=== PATIENT | female | born 1940 | race African-American/Black ===

== ENCOUNTER → 2016-11-04 | Outpatient (CLI) | payer MEDICARE, OTHER | LOC: OD 10:19 | PROVIDERS: ATTEND Internal Medicine | DX: R06.02 Shortness of breath (principal); I34.8 Other nonrheumatic mitral valve disorders; R00.2 Palpitations; E78.4 Other hyperlipidemia; R07.9 Chest pain, unspecified; R01.1 Cardiac murmur, unspecified; Z79.899 Other long term (current) drug therapy | CPT/HCPCS: 36415; 83880 ==

== ENCOUNTER → 2016-12-03 | Outpatient (CLI) | payer MEDICARE, OTHER | LOC: OD 15:29 | PROVIDERS: ATTEND Internal Medicine | DX: R06.09 Other forms of dyspnea (principal) | CPT/HCPCS: 71020 ==

== ENCOUNTER → 2017-02-01 | Outpatient (CLI) | payer MEDICARE, OTHER ==
[2017-02-03 12:43] LABS: ARTERIAL BLOOD BASE EXCESS 2.5 mmol/L; ARTERIAL BLOOD O2 SATURATION 93.9 % (94-98)
== END ==
LOC: OD 11:32
PROVIDERS: ATTEND Internal Medicine Pulmonary Disease
DX: J96.11 Chronic respiratory failure with hypoxia (principal)
CPT/HCPCS: 36600; 82803

== ENCOUNTER → 2017-02-01 | Outpatient (CLI) | payer MEDICARE, OTHER | LOC: OD 11:45 | PROVIDERS: ATTEND Internal Medicine Pulmonary Disease | DX: Z53.9 Procedure and treatment not carried out, unspecified reason (principal) ==

== ENCOUNTER 2017-05-20 16:28 | Inpatient (IN) | payer MEDICARE, OTHER ==
--- NOTE | 2017-05-20 16:42 | ER Document Report ---
ED Medical Screen (RME) - General Chief Complaint: Shortness Of Breath Stated Complaint: SHORTNESS OF BREATHE Time Seen by Provider: 05/20/17 16:41 Mode of Arrival: Wheelchair Information source: Patient TRAVEL OUTSIDE OF THE [place] IN LAST 30 DAYS: No - HPI Patient complains to provider of: Shortness of breath Notes: 05/20/17 16:41 Patient is a 77-year-old female presenting to the emergency room complaining of worsening shortness of breath over the past 6-8 weeks, with chest tightness, no known history of any lung disease, in triage area patient's pulse ox is 83% on room air, she was immediately taken back to her room and handed off to Dr. Ruth for further care - Related Data Allergies/Adverse Reactions: No Known Allergies Allergy (Verified 05/20/17 16:33) Past Medical History - Social History Family history: Reviewed & Not Pertinent - Past Medical History Cardiac Medical History: Reports: Hx Hypertension Denies: Hx Coronary Artery Disease, Hx Heart Attack Pulmonary Medical History: Reports: Hx COPD - slight case Denies: Hx Asthma, Hx Bronchitis, Hx Pneumonia Neurological Medical History: Denies: Hx Cerebrovascular Accident, Hx Seizures Endocrine Medical History: Reports: Hx Diabetes Mellitus Type 2, Hx Hypothyroidism Renal/ Medical History: Denies: Hx Peritoneal Dialysis Musculoskeltal Medical History: Reports Hx Arthritis Past Surgical History: Reports: Hx Abdominal Surgery - hernia, Hx Hysterectomy, Hx Thyroid Surgery - Immunizations Hx Diphtheria, Pertussis, Tetanus Vaccination: No Physical Exam - Vital signs Vitals: Pulse Resp BP Pulse Ox 105 H 22 H 144/59 H 83 L 05/20/17 16:31 05/20/17 16:31 05/20/17 16:31 05/20/17 16:31 Course - Vital Signs Vital signs: Temp Pulse Resp BP Pulse Ox 98.0 F 105 H 22 H 144/59 H 83 L 05/20/17 16:37 05/20/17 16:31 05/20/17 16:31 05/20/17 16:31 05/20/17 16:31
[2017-05-20] MEDS ORDERED: ALBUTEROL SULFATE 0.083% NEB 2.5 MG/3 ML AMPUL NEB ONE (16:44)
[2017-05-20] MEDS ORDERED: MAGNESIUM SULFATE/D5W 1 GM/100 ML RTUPB IV ONE (16:44)
[2017-05-20] MEDS ORDERED: IPRATROPIUM/ALBUTEROL 0.5-2.5 MG/3 ML AMPUL NEB ONE ×2 (16:44→16:48)
[2017-05-20] MEDS ORDERED: METHYLPREDNISOLONE INJ 125 MG/2 ML SDV IV ONE (16:44)
[2017-05-20 17:25] LABS: ABSOLUTE EOSINOPHILS # (AUTO) 0.1 10^3/uL (0.0-0.6); ABSOLUTE LYMPHOCYTES (AUTO) 1.3 10^3/uL (0.5-4.7); ABSOLUTE MONOCYTES (AUTO) 0.3 10^3/uL (0.1-1.4); ABSOLUTE NEUT (AUTO) 4.8 10^3/uL (1.7-8.2); BASOPHILS % (AUTO) 0.8 % (0-2); EOSINOPHILS % (AUTO) 1.2 % (0-6); HEMATOCRIT 43.7 % (36.0-47.0); HEMOGLOBIN 14.8 g/dL (12.0-15.5); HGB HCT DIFFERENCE 0.7; LYMPHOCYTES % (AUTO) 19.4 % (13-45); MEAN CORPUSCULAR HEMOGLOBIN 31.3 pg (27.0-33.4); MEAN CORPUSCULAR HGB CONC 33.8 g/dL (32.0-36.0); MEAN CORPUSCULAR VOLUME 93 fl (80-97); MONOCYTES % (AUTO) 5.2 % (3-13); RED BLOOD COUNT 4.71 10^6/uL (3.72-5.28); RED CELL DISTRIBUTION WIDTH 16.4 % (11.5-14.0); SEGMENTED NEUTROPHILS % (AUTO) 73.4 % (42-78); WHITE BLOOD COUNT 6.5 10^3/uL (4.0-10.5)
[2017-05-20 17:40] LABS: ALANINE AMINOTRANSFERASE 35 U/L (9-52); ALBUMIN 4.3 g/dL (3.5-5.0); ALKALINE PHOSPHATASE 108 U/L (38-126); ANION GAP 16 (5-19); ASPARTATE AMINO TRANSFERASE 29 U/L (14-36); BILIRUBIN,DIRECT 0.4 mg/dL (0.0-0.4); BLOOD UREA NITROGEN 15 mg/dL (7-20); CALCIUM 9.2 mg/dL (8.4-10.2); CARBON DIOXIDE 25 mmol/L (22-30); CHLORIDE 100 mmol/L (98-107); CREATINE KINASE 103 U/L (30-135); CREATININE RESULT 0.97 mg/dL (0.52-1.25); GLUCOSE 179 mg/dL (75-110); POTASSIUM 3.7 mmol/L (3.6-5.0); SODIUM 141.3 mmol/L (137-145); TOTAL PROTEIN 7.4 g/dL (6.3-8.2)
[2017-05-20 17:52] LABS: CREATINE KINASE MB 0.95 ng/mL (<4.55)
--- NOTE | 2017-05-20 17:57 | RADIOLOGY REPORT (SQ) ---
EXAM DESCRIPTION: CHEST SINGLE VIEW COMPLETED DATE/TIME: 05/20/2017 5:49 pm REASON FOR STUDY: db COMPARISON: 12/03/2016. EXAM PARAMETERS: NUMBER OF VIEWS: One view. TECHNIQUE: Single frontal radiographic view of the chest acquired. RADIATION DOSE: NA LIMITATIONS: None. FINDINGS: LUNGS AND PLEURA: Mild atelectasis. No focal infiltrates, masses or pneumothorax. No pleu ral effusion. MEDIASTINUM AND HILAR STRUCTURES: No masses. Contour normal. HEART AND VASCULAR STRUCTURES: Heart upper limits of normal in size. Normal vasculature. BONES: No acute findings. HARDWARE: None in the chest. OTHER: No other significant finding. IMPRESSION: NO ACUTE RADIOGRAPHIC FINDING IN THE CHEST. TECHNICAL DOCUMENTATION: JOB ID: [id number]
[2017-05-20 18:13] LABS: TROPONIN I < 0.012 ng/mL
[2017-05-20 18:22] LABS: VENOUS BLOOD BASE EXCESS 0.7 mmol/L; VENOUS BLOOD HCO3 25.5 mmol/L (20-32); VENOUS BLOOD PCO2 41.4 mmHg (35-63); VENOUS BLOOD PH 7.41 (7.30-7.42)
--- NOTE | 2017-05-20 18:37 | ER Document Report ---
ED General - General Chief Complaint: Shortness Of Breath Stated Complaint: SHORTNESS OF BREATHE Time Seen by Provider: 05/20/17 16:41 Mode of Arrival: Wheelchair TRAVEL OUTSIDE OF THE [place] IN LAST 30 DAYS: No - HPI Patient complains to provider of: Shortness of breath Notes: Patient coming in for evaluation shortness of breath. Patient states initially shortness of breath ongoing for the last month however worse over the last 24 hours. Patient denies any fevers chills nausea vomiting cough patient states mostly short of breath on exertion. Denies any chest pain abdominal pain. Patient states possible history of COPD in the past patient states that one time she was on chronic oxygen however was told by another physician to stop her O2 use. Patient is unclear when she was told not to wear oxygen anymore. Patient does not smoke does not drink alcohol does not do any drugs. Pulse ox at bedside shows 83%. Patient placed on nasal cannula - Related Data Allergies/Adverse Reactions: No Known Allergies Allergy (Verified 05/20/17 16:33) Past Medical History - General Information source: Patient - Social History Smoking Status: Unknown if Ever Smoked Family History: Reviewed & Not Pertinent - Past Medical History Cardiac Medical History: Reports: Hx Hypertension Denies: Hx Coronary Artery Disease, Hx Heart Attack Pulmonary Medical History: Reports: Hx COPD - slight case Denies: Hx Asthma, Hx Bronchitis, Hx Pneumonia Neurological Medical History: Denies: Hx Cerebrovascular Accident, Hx Seizures Endocrine Medical History: Reports: Hx Diabetes Mellitus Type 2, Hx Hypothyroidism Renal/ Medical History: Denies: Hx Peritoneal Dialysis Musculoskeltal Medical History: Reports Hx Arthritis Past Surgical History: Reports: Hx Abdominal Surgery - hernia, Hx Hysterectomy, Hx Thyroid Surgery - Immunizations Hx Diphtheria, Pertussis, Tetanus Vaccination: No Review of Systems - Review of Systems Constitutional: No symptoms reported EENT: No symptoms reported Cardiovascular: No symptoms reported Respiratory: Short of breath, Wheezing Gastrointestinal: No symptoms reported Genitourinary: No symptoms reported Female Genitourinary: No symptoms reported Musculoskeletal: No symptoms reported Skin: No symptoms reported Hematologic/Lymphatic: No symptoms reported Neurological/Psychological: No symptoms reported -: Yes All other systems reviewed and negative Physical Exam - Vital signs Vitals: Pulse Resp BP Pulse Ox 105 H 22 H 144/59 H 83 L 05/20/17 16:31 05/20/17 16:31 05/20/17 16:31 05/20/17 16:31 Interpretation: Hypoxic - General General appearance: Appears well, Alert - HEENT Head: Normocephalic, Atraumatic Eyes: Normal Pupils: PERRL - Respiratory Respiratory status: Respiratory distress Chest status: Nontender Breath sounds: Decreased air movement, Wheezing Chest palpation: Normal - Cardiovascular Rhythm: Regular Heart sounds: Normal auscultation Murmur: No - Abdominal Inspection: Normal Distension: No distension Bowel sounds: Normal Tenderness: Nontender Organomegaly: No organomegaly - Back Back: Normal, Nontender - Extremities General upper extremity: Normal inspection, Nontender, Normal color, Normal ROM , Normal temperature General lower extremity: Normal inspection, Nontender, Normal color, Normal ROM , Normal temperature, Normal weight bearing. No: Ayden's sign - Neurological Neuro grossly intact: Yes Cognition: Normal Orientation: AAOx4 [place] Coma Scale Eye Opening: Spontaneous [place] Coma Scale Verbal: Oriented [place] Coma Scale Motor: Obeys Commands [place] Coma Scale Total: 15 Speech: Normal Motor strength normal: LUE, RUE, LLE, RLE Sensory: Normal - Psychological Associated symptoms: Normal affect, Normal mood - Skin Skin Temperature: Warm Skin Moisture: Dry Skin Color: Normal Course - Re-evaluation Re-evalutation: 05/20/17 18:35 EKG and lab work does not show any concerning pathology at this time. Chest x- ray is also negative d-dimer was elevated follow-up CTA still pending. Patient' s breathing has improved with BiPAP Solu-Medrol bronchodilators and magnesium. Discussed with Dr. Atkins of the hospitalist group states that he will pass the patient's case onto the nighttime hospitalist. - Vital Signs Vital signs: Temp Pulse Resp BP Pulse Ox 98.0 F 105 H 24 H 144/59 H 94 05/20/17 16:37 05/20/17 16:31 05/20/17 17:40 05/20/17 16:31 05/20/17 17:40 - Laboratory Result Diagrams: 05/20/17 16:55 05/20/17 16:55 Laboratory results interpreted by me: 05/20/17 05/20/17 05/20/17 16:55 16:55 16:55 RDW 16.4 H D-Dimer 0.72 H Est GFR (Non-Af Amer) 56 L Glucose 179 H Critical Care Note - Critical Care Note Total time excluding time spent on procedures (mins): 35 Comments: Multiple evaluation patient with COPD exacerbation with hypoxic respiratory failure. Discharge - Discharge Clinical Impression: Acute respiratory failure with hypoxia COPD (chronic obstructive pulmonary disease) Qualifiers: COPD type: unspecified COPD Qualified Code(s): J44.9 - Chronic obstructive pulmonary disease, unspecified Condition: Stable Disposition: ADMITTED INPATIENT Admitting Provider: Hospitalist
--- NOTE | 2017-05-20 18:48 | RADIOLOGY REPORT (SQ) ---
EXAM DESCRIPTION: CTA CHEST COMPLETED DATE/TIME: 05/20/2017 6:18 pm REASON FOR STUDY: sob COMPARISON: None. TECHNIQUE: CT scan of the chest performed using helical scanning technique with dynamic intravenous contrast injection. Images reviewed with lung, soft tissue and bone windows. Reconstructed coronal and sagittal MPR images reviewed. Additional 3 dimensional post-processing performed to develop Maximal Intensity Projection images ([place] P). All images stored on PACS. All CT scanners at this facility use dose modulation, iterative reconstruction, and/or weight based d osing when appropriate to reduce radiation dose to as low as reasonably achievable (ALARA). [facility]: Dose Right [facility]: CareDose [facility]: Dose Right [facility]: Teradose 4D [facility]: HuddleApp CONTRAST TYPE AND DOSE: contrast/concentration: Isovue 370.00 mg/ml; Total Contrast Delivered: 70.0 ml; Total Saline Delivered: 72.0 ml Contrast bolus optimized for the pulmonary arteries. Not diagnostic for the aorta. RENAL FUNCTION: Creatinine 1 BUN 15 RADIATION DOSE: Up-to-date CT equipment and radiation dose reduction techniques were employed. CTDIv ol: 16.5 - 18.8 mGy. DLP: 658 mGy-cm. . LIMITATIONS: None. FINDINGS: LUNGS AND PLEURA: Centrilobular emphysematous changes are present. These are more promine nt in upper lobes. No pulmonary mass or infiltrate is seen. AORTA AND GREAT VESSELS: No aneurysm. Contrast bolus not optimized for the aorta. HEART: No pericardial effusion. Moderate to marked coronary artery calcifications. PULMONARY ARTERIES: No emboli visualized in the main pulmonary arteries or the segmental branches. HILAR AND MEDIASTINAL STRUCTURES: There is mild mediastinal and hilar adenopathy, more on the left th an the right. HARDWARE: None in the chest. UPPER ABDOMEN: There is a 9 cm upper pole right renal cyst. Smaller left renal cysts are present. THYROID AND OTHER SOFT TISSUES: No masses. No adenopathy. BONES: No osseous lesions are seen. 3D MIPS: Confirm above findings. OTHER: No other significant finding. IMPRESSION: 1. There is no evidence of pulmonary emboli. 2. There is some mild high hilar mediastinal adenopathy. 3. Centrilobular emphysematous changes in the upper lobes. 4. Coronary atherosclerosis. 5. Large right renal cyst. COMMENT: Quality ID # [id number]: Final reports with documentation of one or more dose reduction techniques (e.g., Automated exposure control, adjustment of the mA and/or kV according to patient size, use of iterative reconstruction technique) TECHNICAL DOCUMENTATION: JOB ID: [id number] [employer]- All Rights Reserved
[2017-05-20] MEDS ORDERED: ACETAMINOPHEN 325 MG TABLET PO PRN (19:33)
[2017-05-20] MEDS ORDERED: DEXTROSE 50%-WATER 25 GM/50 ML DISP.SYRIN IV PRN ×2 (19:40)
[2017-05-20] MEDS ORDERED: GLUCAGON,HUMAN RECOMB 1 MG INJ IM PRN (19:40)
[2017-05-20] MEDS ORDERED: DEXTROSE 40% GEL 15 GM TUBE PO PRN ×2 (19:40)
[2017-05-20] MEDS ORDERED: ALBUTEROL SULFATE 0.083% NEB 2.5 MG/3 ML AMPUL NEB SCH (20:00)
[2017-05-20] MEDS ORDERED: FLUTICASONE NASAL SPRAY 50 MCG/SPRY 120 SPRAY/16 GM NASL ONE (20:30)
[2017-05-20] MEDS ORDERED: CHLORPHENIRAMINE MALEATE 4 MG TABLET PO ONE (20:30)
[2017-05-20] MEDS ORDERED: PREDNISONE 20 MG TABLET PO ONE (20:30)
[2017-05-20] MEDS: IPRATROPIUM/ALBUTEROL 0.5-2.5 MG/3 ML AMPUL NEB SCH (20:35)
--- NOTE | 2017-05-20 22:53 | PDOC H&P ---
History of Present Illness Admission Date/PCP: 05/20/17 19:33 Patient complains of: Shortness of breath History of Present Illness: MARTA ANDERS is a 77 year old female with a past medical history of COPD formerly oxygen dependent who has exceptional shortness of breath limiting ambulation beyond 20 feet at baseline. She had been in her usual state of health until approximately 24 hours ago developing shortness of breath at rest and a nonproductive cough denying rhinorrhea, sore throat, chest pain fever and chills. Denying exposure to known trigger. She denies any recent change in her medication regiment. In the emergency room she is found to have oxygen saturations of 83% and a CT a negative for PE but suggestive of emphysema she is placed on BiPAP at 50%, Solu-Medrol and DuoNeb. She is referred to the hospitalist for admission. Past Medical History Cardiac Medical History: Reports: Hypertension Denies: Coronary Artery Disease, Myocardial Infarction Pulmonary Medical History: Reports: Chronic Obstructive Pulmonary Disease (COPD ) - slight case Denies: Asthma, Bronchitis, Pneumonia Neurological Medical History: Denies: Seizures Endocrine Medical History: Reports: Diabetes Mellitus Type 2, Hypothyroidism Musculoskeltal Medical History: Reports: Arthritis Hematology: Comment Only: Anemia - on ASA Past Surgical History Past Surgical History: Reports: Hysterectomy Social History Information Source: Patient Smoking Status: Former Smoker Frequency of Alcohol Use: None Hx Recreational Drug Use: No Drugs: None - Advance Directive Resuscitation Status: Full Code Family History Family History: COPD Parental Family History Reviewed: Yes Children Family History Reviewed: Yes Sibling(s) Family History Reviewed.: Yes Medication/Allergy Home Medications: Empagliflozin [Jardiance] 25 mg PO DAILY 05/20/17 Allergies/Adverse Reactions: No Known Allergies Allergy (Verified 05/20/17 16:33) Review of Systems Constitutional: ABSENT: chills, fever(s), headache(s), weight gain, weight loss Eyes: ABSENT: visual disturbances Ears: ABSENT: hearing changes Cardiovascular: ABSENT: chest pain, dyspnea on exertion, edema, orthropnea, palpitations Respiratory: ABSENT: cough, hemoptysis Gastrointestinal: ABSENT: abdominal pain, constipation, diarrhea, hematemesis, hematochezia, nausea, vomiting Genitourinary: ABSENT: dysuria, hematuria Musculoskeletal: ABSENT: joint swelling Integumentary: ABSENT: rash, wounds Neurological: ABSENT: abnormal gait, abnormal speech, confusion, dizziness, focal weakness, syncope Psychiatric: ABSENT: anxiety, depression, homidical ideation, suicidal ideation Endocrine: ABSENT: cold intolerance, heat intolerance, polydipsia, polyuria Hematologic/Lymphatic: ABSENT: easy bleeding, easy bruising Physical Exam Vital Signs: Temp Pulse Resp BP Pulse Ox 98.0 F 105 H 20 121/87 H 94 05/20/17 16:37 05/20/17 16:31 05/20/17 21:01 05/20/17 21:01 05/20/17 21:00 General appearance: PRESENT: cooperative, mild distress, well-developed, well- nourished Head exam: PRESENT: atraumatic, normocephalic Eye exam: PRESENT: conjunctiva pink, EOMI, PERRLA. ABSENT: scleral icterus Ear exam: PRESENT: normal external ear exam Mouth exam: PRESENT: moist, tongue midline Neck exam: ABSENT: carotid bruit, JVD, lymphadenopathy, thyromegaly Respiratory exam: PRESENT: accessory muscle use, decreased breath sounds, prolonged expiratory phas, tachypnea. ABSENT: rales, rhonchi, wheezes Cardiovascular exam: PRESENT: RRR. ABSENT: diastolic murmur, rubs, systolic murmur Pulses: PRESENT: normal dorsalis pedis pul Vascular exam: PRESENT: normal capillary refill GI/Abdominal exam: PRESENT: normal bowel sounds, soft. ABSENT: distended, guarding, mass, organolmegaly, rebound, tenderness Rectal exam: PRESENT: deferred Extremities exam: PRESENT: full ROM. ABSENT: calf tenderness, clubbing, pedal edema Neurological exam: PRESENT: alert, awake, oriented to person, oriented to place , oriented to time, oriented to situation, CN II-XII grossly intact. ABSENT: motor sensory deficit Psychiatric exam: PRESENT: appropriate affect, normal mood. ABSENT: homicidal ideation, suicidal ideation Skin exam: PRESENT: dry, intact, warm. ABSENT: cyanosis, rash Results Impressions: Chest X-Ray 05/20/17 16:41 IMPRESSION: NO ACUTE RADIOGRAPHIC FINDING IN THE CHEST. Chest/Abdomen CTA 05/20/17 17:40 IMPRESSION: 1. There is no evidence of pulmonary emboli. 2. There is some mild high hilar mediastinal adenopathy. 3. Centrilobular emphysematous changes in the upper lobes. 4. Coronary atherosclerosis. 5. Large right renal cyst. Assessment & Plan - Diagnosis (1) COPD (chronic obstructive pulmonary disease) Qualifiers: COPD type: unspecified COPD Qualified Code(s): J44.9 - Chronic obstructive pulmonary disease, unspecified Is this a current diagnosis for this admission?: Yes Plan: Supplemental oxygen, BiPAP prednisone, albuterol, Atrovent, Flonase, empiric antibiotics, flutter valve. Consider PFTs and evaluation of IPF if no significant improvement. (2) Acute bronchitis Is this a current diagnosis for this admission?: Yes Plan: Flutter valve, empiric antibiotics. (3) Acute respiratory failure with hypoxia Is this a current diagnosis for this admission?: Yes Plan: Likely COPD and bronchitis exacerbation however remote PFTs in 2010 showed no significant reversal with albuterol suspicious for I PF. Consider repeat PFTs regardless patient will benefit from pulmonary rehab. - Time Time Spent: 50 to 70 Minutes - Inpatient Certification Medical Necessity: Need Close Monitoring Due to Risk of Patient Decompensation
[2017-05-21] MEDS ORDERED: ALBUTEROL SULFATE 0.083% NEB 2.5 MG/3 ML AMPUL NEB SCH
[2017-05-21] MEDS: HEPARIN SOD (PORCINE) 5,000 UNIT/ML 1 ML SYRINGE SUBCUT SCH ×4 (00:10→21:42)
[2017-05-21] MEDS: LEVOFLOXACIN 750 MG/D5W RTU 750 MG/150 ML RTUPB IV SCH ×2 (00:26→21:42)
[2017-05-21] MEDS: IPRATROPIUM/ALBUTEROL 0.5-2.5 MG/3 ML AMPUL NEB SCH ×4 (02:26→20:36)
[2017-05-21 05:39] LABS: ABSOLUTE LYMPHOCYTES (AUTO) 0.7 10^3/uL (0.5-4.7); ABSOLUTE MONOCYTES (AUTO) 0.1 10^3/uL (0.1-1.4); ABSOLUTE NEUT (AUTO) 8.5 10^3/uL (1.7-8.2); BASOPHILS % (AUTO) 0.2 % (0-2); HEMATOCRIT 42.5 % (36.0-47.0); HEMOGLOBIN 13.9 g/dL (12.0-15.5); HGB HCT DIFFERENCE -0.8; LYMPHOCYTES % (AUTO) 7.5 % (13-45); MEAN CORPUSCULAR HEMOGLOBIN 30.9 pg (27.0-33.4); MEAN CORPUSCULAR HGB CONC 32.8 g/dL (32.0-36.0); MEAN CORPUSCULAR VOLUME 94 fl (80-97); MONOCYTES % (AUTO) 1.3 % (3-13); RED CELL DISTRIBUTION WIDTH 16.3 % (11.5-14.0); WHITE BLOOD COUNT 9.3 10^3/uL (4.0-10.5)
[2017-05-21 05:52] LABS: BLOOD UREA NITROGEN 18 mg/dL (7-20); CALCIUM 9.7 mg/dL (8.4-10.2); CHLORIDE 96 mmol/L (98-107); CREATININE RESULT 0.98 mg/dL (0.52-1.25)
[2017-05-21 06:09] LABS: CARBON DIOXIDE 20 mmol/L (22-30); POTASSIUM 4.3 mmol/L (3.6-5.0); SODIUM 138.6 mmol/L (137-145)
[2017-05-21 06:10] LABS: ANION GAP 23 (5-19)
[2017-05-21 06:12] LABS: GLUCOSE 438 mg/dL (75-110)
[2017-05-21] MEDS: INSULIN LISPRO 100 UNIT/ML 3 ML VIAL SUBCUT PRN ×4 (07:29→23:41)
[2017-05-21] MEDS ORDERED: METHYLPREDNISOLONE INJ 125 MG/2 ML SDV IV SCH (07:45)
[2017-05-21] MEDS ORDERED: PREDNISONE 20 MG TABLET PO SCH (10:00)
[2017-05-21] MEDS ORDERED: LEVOFLOXACIN 750 MG/D5W RTU 750 MG/150 ML RTUPB IV SCH (10:00)
[2017-05-21] MEDS ORDERED: (PENDING PHARMACY ID) (Empagliflozin [Jardiance] 25 MG) PO SCH (10:00)
[2017-05-21] MEDS: METHYLPREDNISOLONE INJ 125 MG/2 ML SDV IV SCH ×2 (10:35→17:06)
[2017-05-21] MEDS: TIOTROPIUM BROMIDE DPI 5 CAP/KIT (18 MCG/CAP) IH SCH (10:35)
[2017-05-21] MEDS: FLUTICASONE NASAL SPRAY 50 MCG/SPRY 120 SPRAY/16 GM NASL SCH (10:35)
--- NOTE | 2017-05-21 11:37 | EKG REPORT ---
SEVERITY:- BORDERLINE ECG - SINUS RHYTHM PROBABLE LEFT ATRIAL ABNORMALITY BORDERLINE T ABNORMALITIES, DIFFUSE LEADS : Confirmed by: Luis Boggs 21-May-2017 11:36:59
--- NOTE | 2017-05-21 11:40 | PDOC PROGRESS REPORT ---
Subjective Progress Note for:: 05/21/17 Subjective:: Patient seen on morning rounds. She is sitting comfortably on side of the bed. She is presently off BiPAP on nasal cannula. She does not appear tachypneic or in any distress. She denies chest pain, palpitations or dyspnea. Denies nausea, abdominal pain or diarrhea. She denies any significant arthralgias or myalgias. She states she has noticed her breathing worsening at home over the last month. She denies any fever chills. She states her cough is loosening but she has not been able to raise secretions at this time. Remaining review of systems is negative. Physical Exam Vital Signs: Temp Pulse Resp BP Pulse Ox 97.6 F 88 22 H 138/84 H 100 05/21/17 08:38 05/21/17 08:39 05/21/17 08:39 05/21/17 08:38 05/21/17 08:39 Intake & Output 05/20/17 05/21/17 05/22/17 06:59 06:59 06:59 Intake Total 450 Balance 450 Weight 80.3 kg General appearance: PRESENT: no acute distress, well-developed, well-nourished Head exam: PRESENT: atraumatic, normocephalic Eye exam: PRESENT: conjunctiva pink, EOMI, PERRLA. ABSENT: scleral icterus Ear exam: PRESENT: normal external ear exam Mouth exam: PRESENT: moist, tongue midline Neck exam: ABSENT: carotid bruit, JVD, lymphadenopathy, thyromegaly Respiratory exam: PRESENT: decreased breath sounds, symmetrical, unlabored, wheezes Cardiovascular exam: PRESENT: RRR. ABSENT: diastolic murmur, rubs, systolic murmur Pulses: PRESENT: normal dorsalis pedis pul Vascular exam: PRESENT: normal capillary refill GI/Abdominal exam: PRESENT: normal bowel sounds, soft. ABSENT: distended, guarding, mass, organolmegaly, rebound, tenderness Rectal exam: PRESENT: deferred Extremities exam: PRESENT: full ROM. ABSENT: calf tenderness, clubbing, pedal edema Musculoskeletal exam: PRESENT: ambulatory, full ROM, normal inspection Neurological exam: PRESENT: alert, awake, oriented to person, oriented to place , oriented to time, oriented to situation, CN II-XII grossly intact. ABSENT: motor sensory deficit Psychiatric exam: PRESENT: appropriate affect, normal mood. ABSENT: homicidal ideation, suicidal ideation Skin exam: PRESENT: dry, intact, warm. ABSENT: cyanosis, rash Results Laboratory Results: 05/21/17 05:23 05/21/17 05:23 05/21/17 05/21/17 05:23 05:23 WBC 9.3 RBC 4.50 Hgb 13.9 Hct 42.5 MCV 94 MCH 30.9 MCHC 32.8 RDW 16.3 H Plt Count 263 Seg Neutrophils % 91.0 H Lymphocytes % 7.5 L Monocytes % 1.3 L Eosinophils % 0.0 Basophils % 0.2 Absolute Neutrophils 8.5 H Absolute Lymphocytes 0.7 Absolute Monocytes 0.1 Absolute Eosinophils 0.0 Absolute Basophils 0.0 Sodium 138.6 Potassium 4.3 Chloride 96 L Carbon Dioxide 20 L Anion Gap 23 H BUN 18 Creatinine 0.98 Est GFR ( Amer) > 60 Est GFR (Non-Af Amer) 55 L Glucose 438 H* Calcium 9.7 Impressions: Chest X-Ray 05/20/17 16:41 IMPRESSION: NO ACUTE RADIOGRAPHIC FINDING IN THE CHEST. Chest/Abdomen CTA 05/20/17 17:40 IMPRESSION: 1. There is no evidence of pulmonary emboli. 2. There is some mild high hilar mediastinal adenopathy. 3. Centrilobular emphysematous changes in the upper lobes. 4. Coronary atherosclerosis. 5. Large right renal cyst. Assessment & Plan - Diagnosis (1) Acute respiratory failure with hypoxia Is this a current diagnosis for this admission?: Yes Plan: BiPAP at bedtime and as needed. (2) Acute bronchitis Is this a current diagnosis for this admission?: Yes Plan: Continue steroids, nebulizers and broad-spectrum antibiotics. (3) COPD (chronic obstructive pulmonary disease) Qualifiers: COPD type: unspecified COPD Qualified Code(s): J44.9 - Chronic obstructive pulmonary disease, unspecified Is this a current diagnosis for this admission?: Yes (4) Diabetes 1.5, managed as type 2 Is this a current diagnosis for this admission?: Yes Plan: Continue home medications and sliding scale coverage (5) Essential hypertension Is this a current diagnosis for this admission?: Yes Plan: Continue home medications. - Time Time Spent with patient: 25-34 minutes Critical Time spent with patient: 15-24 minutes Medications reviewed and adjusted accordingly: Yes Anticipated discharge: Home with Homehealth
[2017-05-22] MEDS: METHYLPREDNISOLONE INJ 125 MG/2 ML SDV IV SCH ×2 (02:10→09:18)
[2017-05-22] MEDS: IPRATROPIUM/ALBUTEROL 0.5-2.5 MG/3 ML AMPUL NEB SCH ×4 (02:47→20:38)
[2017-05-22] MEDS: HEPARIN SOD (PORCINE) 5,000 UNIT/ML 1 ML SYRINGE SUBCUT SCH ×3 (05:18→22:00)
[2017-05-22] MEDS ORDERED: FLUTICASONE/SALMETEROL DISKUS 250-50 MCG/DOSE IH SCH (08:00)
[2017-05-22] MEDS: INSULIN LISPRO 100 UNIT/ML 3 ML VIAL SUBCUT PRN ×4 (08:13→22:00)
[2017-05-22] MEDS: DILTIAZEM HCL 120 MG CAP.SR.24H PO SCH (09:18)
[2017-05-22] MEDS: FLUTICASONE NASAL SPRAY 50 MCG/SPRY 120 SPRAY/16 GM NASL SCH (09:18)
[2017-05-22] MEDS: TIOTROPIUM BROMIDE DPI 5 CAP/KIT (18 MCG/CAP) IH SCH (09:19)
[2017-05-22] MEDS ORDERED: LEVOTHYROXINE SODIUM 0.112 MG TABLET PO SCH (10:00)
[2017-05-22] MEDS ORDERED: LANSOPRAZOLE 15 MG TAB.RAP.DR PO SCH (10:00)
[2017-05-22] MEDS ORDERED: ALPRAZOLAM 0.5 MG TABLET PO PRN (10:24)
[2017-05-22] MEDS ORDERED: METHYLPREDNISOLONE INJ 125 MG/2 ML SDV IV SCH (10:25)
--- NOTE | 2017-05-22 11:42 | PDOC PROGRESS REPORT ---
Subjective Progress Note for:: 05/22/17 Subjective:: Patient seen on morning rounds. She is sitting in the bedside chair. She states her breathing feels improved from yesterday. She does not appear tachypneic or in any distress. She denies chest pain, palpitations or dyspnea. Denies nausea, abdominal pain or diarrhea. She denies any significant arthralgias or myalgias. She states she has noticed her breathing worsening at home over the last month. She denies any fever chills. She states her cough is loosening but she has not been able to raise secretions at this time. Remaining review of systems is negative. Physical Exam Vital Signs: Temp Pulse Resp BP Pulse Ox 97.4 F 101 H 20 136/69 H 95 05/22/17 04:00 05/22/17 08:20 05/22/17 08:20 05/22/17 04:00 05/22/17 08:20 Intake & Output 05/21/17 05/22/17 05/23/17 06:59 06:59 06:59 Intake Total 450 1341 Balance 450 1341 Weight 80.3 kg 79.7 kg General appearance: PRESENT: no acute distress, well-developed, well-nourished Head exam: PRESENT: atraumatic, normocephalic Eye exam: PRESENT: conjunctiva pink, EOMI, PERRLA. ABSENT: scleral icterus Ear exam: PRESENT: normal external ear exam Mouth exam: PRESENT: moist, tongue midline Neck exam: ABSENT: carotid bruit, JVD, lymphadenopathy, thyromegaly Respiratory exam: PRESENT: decreased breath sounds, rhonchi, symmetrical, unlabored Cardiovascular exam: PRESENT: RRR. ABSENT: diastolic murmur, rubs, systolic murmur Pulses: PRESENT: normal dorsalis pedis pul Vascular exam: PRESENT: normal capillary refill GI/Abdominal exam: PRESENT: normal bowel sounds, soft. ABSENT: distended, guarding, mass, organolmegaly, rebound, tenderness Rectal exam: PRESENT: deferred Extremities exam: PRESENT: full ROM. ABSENT: calf tenderness, clubbing, pedal edema Musculoskeletal exam: PRESENT: ambulatory, full ROM, normal inspection Neurological exam: PRESENT: alert, awake, oriented to person, oriented to place , oriented to time, oriented to situation, CN II-XII grossly intact. ABSENT: motor sensory deficit Psychiatric exam: PRESENT: appropriate affect, normal mood. ABSENT: homicidal ideation, suicidal ideation Skin exam: PRESENT: dry, intact, warm. ABSENT: cyanosis, rash Results Laboratory Results: 05/21/17 05:23 05/21/17 05:23 Impressions: Chest X-Ray 05/20/17 16:41 IMPRESSION: NO ACUTE RADIOGRAPHIC FINDING IN THE CHEST. Chest/Abdomen CTA 05/20/17 17:40 IMPRESSION: 1. There is no evidence of pulmonary emboli. 2. There is some mild high hilar mediastinal adenopathy. 3. Centrilobular emphysematous changes in the upper lobes. 4. Coronary atherosclerosis. 5. Large right renal cyst. Assessment & Plan - Diagnosis (1) Acute respiratory failure with hypoxia Is this a current diagnosis for this admission?: Yes Plan: BiPAP at bedtime and as needed. (2) Acute bronchitis Is this a current diagnosis for this admission?: Yes Plan: Continue steroids, nebulizers and broad-spectrum antibiotics. (3) COPD (chronic obstructive pulmonary disease) Qualifiers: COPD type: unspecified COPD Qualified Code(s): J44.9 - Chronic obstructive pulmonary disease, unspecified Is this a current diagnosis for this admission?: Yes Plan: Will obtain nocturnal pulse oxymetry (4) Diabetes 1.5, managed as type 2 Is this a current diagnosis for this admission?: Yes Plan: Continue home medications and sliding scale coverage (5) Essential hypertension Is this a current diagnosis for this admission?: Yes Plan: Continue home medications. (6) Anxiety Is this a current diagnosis for this admission?: Yes Plan: Xanax prn - Time Time Spent with patient: 25-34 minutes Critical Time spent with patient: 15-24 minutes Medications reviewed and adjusted accordingly: Yes
[2017-05-22] MEDS: FLUTICASONE/SALMETEROL DISKUS 250-50 MCG/DOSE IH SCH ×2 (12:44→22:00)
[2017-05-22] MEDS ORDERED: INSULIN GLARGINE,HUM.REC.ANLOG 300 UNIT/3 ML INSULN.PEN SUBCUT ONE (17:15)
[2017-05-22] MEDS: METHYLPREDNISOLONE INJ 40 MG/1 ML SDV IV SCH (17:35)
[2017-05-22] MEDS ORDERED: INSULIN GLARGINE,HUM.REC.ANLOG 1,000 UNIT/10 ML UNIT SUBCUT ONE ×2 (18:27→18:45)
[2017-05-22] MEDS: LEVOFLOXACIN 750 MG/D5W RTU 750 MG/150 ML RTUPB IV SCH (22:00)
[2017-05-23] MEDS: METHYLPREDNISOLONE INJ 40 MG/1 ML SDV IV SCH (02:15)
[2017-05-23] MEDS: IPRATROPIUM/ALBUTEROL 0.5-2.5 MG/3 ML AMPUL NEB SCH ×3 (02:46→13:53)
[2017-05-23 05:41] LABS: VENOUS BLOOD BASE EXCESS 2.4 mmol/L; VENOUS BLOOD HCO3 27.3 mmol/L (20-32); VENOUS BLOOD PCO2 43.1 mmHg (35-63); VENOUS BLOOD PH 7.42 (7.30-7.42)
[2017-05-23 06:05] LABS: ANION GAP 11 (5-19); BLOOD UREA NITROGEN 30 mg/dL (7-20); CALCIUM 9.2 mg/dL (8.4-10.2); CARBON DIOXIDE 28 mmol/L (22-30); CHLORIDE 99 mmol/L (98-107); CREATININE RESULT 0.93 mg/dL (0.52-1.25); GLUCOSE 348 mg/dL (75-110); POTASSIUM 4.5 mmol/L (3.6-5.0); SODIUM 137.5 mmol/L (137-145)
[2017-05-23] MEDS: HEPARIN SOD (PORCINE) 5,000 UNIT/ML 1 ML SYRINGE SUBCUT SCH ×2 (06:45→14:39)
[2017-05-23] MEDS ORDERED: ALPRAZOLAM 0.5 MG TABLET PO PRN (07:30)
[2017-05-23] MEDS ORDERED: LANSOPRAZOLE 15 MG TAB.RAP.DR PO ONE (07:30)
[2017-05-23] MEDS: INSULIN LISPRO 100 UNIT/ML 3 ML VIAL SUBCUT PRN ×2 (07:38→11:25)
[2017-05-23] MEDS ORDERED: LEVOTHYROXINE SODIUM 0.112 MG TABLET PO SCH (08:00)
[2017-05-23] MEDS: FLUTICASONE NASAL SPRAY 50 MCG/SPRY 120 SPRAY/16 GM NASL SCH (09:29)
[2017-05-23] MEDS: DILTIAZEM HCL 120 MG CAP.SR.24H PO SCH (09:29)
[2017-05-23] MEDS: TIOTROPIUM BROMIDE DPI 5 CAP/KIT (18 MCG/CAP) IH SCH (09:30)
[2017-05-23] MEDS: FLUTICASONE/SALMETEROL DISKUS 250-50 MCG/DOSE IH SCH (09:30)
[2017-05-23] MEDS ORDERED: INSULIN GLARGINE,HUM.REC.ANLOG 1,000 UNIT/10 ML UNIT SUBCUT SCH (10:00)
[2017-05-23] MEDS ORDERED: PREDNISONE 20 MG TABLET PO SCH (10:00)
[2017-05-23] MEDS ORDERED: LEVOFLOXACIN 750 MG TABLET PO SCH (10:00)
[2017-05-23] MEDS ORDERED: INSULIN GLARGINE,HUM.REC.ANLOG 300 UNIT/3 ML INSULN.PEN SUBCUT SCH (10:00)
[2017-05-23 14:49] VITALS: BP 146/75
--- NOTE | 2017-05-23 17:09 | PDOC DISCHARGE SUMMARY ---
General - Admit/Disc Date/PCP Admission Date/Primary Care Provider: 05/22/17 18:33 Discharge Date: 05/23/17 - Discharge Diagnosis (1) Acute respiratory failure with hypoxia Is this a current diagnosis for this admission?: Yes Summary: Improved to baseline. Patient does need home oxygen and is willing to wear it now. She was ordered CPAP as well. She has had a positive sleep study in the past. She does not wish to follow with pulmonary in [place] she will follow her primary's recommendation. (2) Acute bronchitis Is this a current diagnosis for this admission?: Yes Summary: Continue Levaquin for 5 more days (3) COPD (chronic obstructive pulmonary disease) Is this a current diagnosis for this admission?: Yes Summary: Continue inhalers. (4) Diabetes 1.5, managed as type 2 Is this a current diagnosis for this admission?: Yes Summary: Continue current home (5) Essential hypertension Is this a current diagnosis for this admission?: Yes (6) Anxiety Is this a current diagnosis for this admission?: Yes - Additional Information Resuscitation Status: Full Code Discharge Diet: Diabetic Discharge Activity: Activity As Tolerated Home Medications: Empagliflozin [Jardiance] 25 mg PO DAILY 05/20/17 Diltiazem HCl [Diltiazem 24Hr Cd] 120 mg PO DAILY 05/21/17 Fluticasone/Salmeterol [Advair 250-50 Diskus 14 Dose/Diskus] 1 puff IH Q12 05/21 Levothyroxine Sodium [Synthroid 0.112 mg Tablet] 0.112 mg PO DAILY 05/21/17 Omeprazole 20 mg PO DAILY 05/21/17 Acetaminophen [Tylenol 325 mg Tablet] 650 mg PO Q4HP PRN tablet 05/23/17 Fluticasone Propionate [Flonase Nasal [place] 50 Mcg/[place] 16 gm] 2 spray NASL DAILY spray.pump 05/23/17 Levofloxacin [Levaquin 750 mg Tablet] 750 mg PO DAILY #5 tablet 05/23/17 Prednisone [Deltasone 20 mg Tablet] 20 mg PO DAILY #7 tablet 05/23/17 History of Present Illness Patient complains of: Shortness of breath and dyspnea History of Present Illness: MARTA ANDERS is a 77 year old female with a past medical history of COPD formerly oxygen dependent who has exceptional shortness of breath limiting ambulation beyond 20 feet at baseline. She had been in her usual state of health until approximately 24 hours ago developing shortness of breath at rest and a nonproductive cough denying rhinorrhea, sore throat, chest pain fever and chills. Denying exposure to known trigger. She denies any recent change in her medication regiment. In the emergency room she is found to have oxygen saturations of 83% and a CT a negative for PE but suggestive of emphysema she is placed on BiPAP at 50%, Solu-Medrol and DuoNeb. She is referred to the hospitalist for admission. Hospital Course Hospital Course: Patient was admitted to the telemetry service. She was started on IV broad- spectrum antibiotics, steroids and there was a treatments. She gradually improved over the next 48 hours. Steroids were weaned to off. Cough and dyspnea has improved. She has agreed to wear oxygen and will need oxygen at discharge. She feels ready for discharge home will follow up with her primary care provider. Physical Exam Vital Signs: Temp Pulse Resp BP Pulse Ox 97.6 F 98 20 146/75 H 97 05/23/17 14:47 05/23/17 14:47 05/23/17 14:47 05/23/17 14:47 05/23/17 14:47 Pulse Oximeter Nocturnal Start: 05/22/17 11: 34 Freq: HSP Status: Active Document 05/23/17 03:41 STI (Rec: 05/23/17 03:41 STI [id number]) Nocturnal Pulse Oximetry Equipment Usage Equipment in Use Nocturnal Spo2 Charge Charge Now Oxygen Delivery Method (includes room Bi-pap air) O2 Sat by Pulse Oximetry (92-100) 30 Continuous SpO2 Machine # [id number] Intake & Output 05/22/17 05/23/17 05/24/17 06:59 06:59 06:59 Intake Total 1540 Balance 1540 Weight 79.1 kg General appearance: PRESENT: no acute distress, obese, well-developed, well- nourished Head exam: PRESENT: atraumatic, normocephalic Eye exam: PRESENT: conjunctiva pink, EOMI, PERRLA. ABSENT: scleral icterus Ear exam: PRESENT: normal external ear exam Mouth exam: PRESENT: moist, tongue midline Neck exam: ABSENT: carotid bruit, JVD, lymphadenopathy, thyromegaly Respiratory exam: PRESENT: clear to auscultation mark, decreased breath sounds, symmetrical, unlabored Cardiovascular exam: PRESENT: RRR. ABSENT: diastolic murmur, rubs, systolic murmur Pulses: PRESENT: normal dorsalis pedis pul Vascular exam: PRESENT: normal capillary refill GI/Abdominal exam: PRESENT: normal bowel sounds, soft. ABSENT: distended, guarding, mass, organolmegaly, rebound, tenderness Rectal exam: PRESENT: deferred Extremities exam: PRESENT: full ROM. ABSENT: calf tenderness, clubbing, pedal edema Neurological exam: PRESENT: alert, awake, oriented to person, oriented to place , oriented to time, oriented to situation, CN II-XII grossly intact. ABSENT: motor sensory deficit Psychiatric exam: PRESENT: appropriate affect, normal mood. ABSENT: homicidal ideation, suicidal ideation Skin exam: PRESENT: dry, intact, warm. ABSENT: cyanosis, rash Results Laboratory Results: 05/23/17 05:25 05/23/17 05/23/17 05:25 05:25 VBG pH 7.42 VBG pCO2 43.1 VBG HCO3 27.3 VBG Base Excess 2.4 Sodium 137.5 Potassium 4.5 Chloride 99 Carbon Dioxide 28 Anion Gap 11 BUN 30 H Creatinine 0.93 Est GFR ( Amer) > 60 Est GFR (Non-Af Amer) 59 L Glucose 348 H Calcium 9.2 Impressions: Chest X-Ray 05/20/17 16:41 IMPRESSION: NO ACUTE RADIOGRAPHIC FINDING IN THE CHEST. Chest/Abdomen CTA 05/20/17 17:40 IMPRESSION: 1. There is no evidence of pulmonary emboli. 2. There is some mild high hilar mediastinal adenopathy. 3. Centrilobular emphysematous changes in the upper lobes. 4. Coronary atherosclerosis. 5. Large right renal cyst. Qualifiers PATEINT BEING DISCHARGED WITH ANY OF THE FOLLOWING DIAGNOSIS?: No Plan Discharge Plan: Home Time Spent: Less than 30 Minutes
[2017-05-24] MEDS ORDERED: LANSOPRAZOLE 15 MG TAB.RAP.DR PO SCH (06:00)
[2017-05-24] MEDS ORDERED: LEVOFLOXACIN 750 MG TABLET PO SCH (10:00)
== END 2017-05-23 17:15 | disposition home or self-care (01) | DRG 190 ==
LOC: ER 16:28 → EH 19:33 → UNDOADMOB 19:33 → EH 20:14 → UNDOADMOB 20:14 → 4S 23:10 → EH 23:10 → 4S 05-22 18:33 → INTOOBSV 05-22 18:33 → OBSVTOIN 05-22 18:33
PROVIDERS: ADMIT Internal Medicine; ATTEND Internal Medicine
PROC: 5A09457 Assistance with Respiratory Ventilation, 24-96 Consecutive Hours, Continuous Positive Airway Pressure (ICD-10-PCS; principal; 2017-05-20)
DX: J44.0 Chronic obstructive pulmonary disease with (acute) lower respiratory infection (principal); J96.21 Acute and chronic respiratory failure with hypoxia; J20.9 Acute bronchitis, unspecified; J44.1 Chronic obstructive pulmonary disease with (acute) exacerbation; E11.9 Type 2 diabetes mellitus without complications; I10 Essential (primary) hypertension; F41.9 Anxiety disorder, unspecified; Z99.81 Dependence on supplemental oxygen; E03.9 Hypothyroidism, unspecified; M19.90 Unspecified osteoarthritis, unspecified site; D64.9 Anemia, unspecified; Z90.710 Acquired absence of both cervix and uterus
CPT/HCPCS: 36415; 71010; 71275; 80048; 80053; 82550; 82553; 82803; 82962; 83735; 83880; 84484; 85025; 85379; 87040; 93005; 93010; 94640; 94660; 94668; 94762; 94799; 96365; 96375; 99291; G0378; J1644; J1815; J1956; J2920; J2930; J3475; J3490; J7512; J7620

== ENCOUNTER → 2017-08-05 | Outpatient (CLI) | payer MEDICARE, OTHER ==
[2017-08-05 11:49] LABS: ABSOLUTE BASOPHILS # (AUTO) 0.1 10^3/uL (0.0-0.2); ABSOLUTE EOSINOPHILS # (AUTO) 0.2 10^3/uL (0.0-0.6); ABSOLUTE LYMPHOCYTES (AUTO) 1.5 10^3/uL (0.5-4.7); ABSOLUTE MONOCYTES (AUTO) 0.5 10^3/uL (0.1-1.4); ABSOLUTE NEUT (AUTO) 4.6 10^3/uL (1.7-8.2); BASOPHILS % (AUTO) 1.1 % (0-2); EOSINOPHILS % (AUTO) 3.5 % (0-6); HEMATOCRIT 44.7 % (36.0-47.0); HEMOGLOBIN 14.8 g/dL (12.0-15.5); HGB HCT DIFFERENCE -0.3; LYMPHOCYTES % (AUTO) 21.9 % (13-45); MEAN CORPUSCULAR HEMOGLOBIN 30.3 pg (27.0-33.4); MEAN CORPUSCULAR HGB CONC 33.2 g/dL (32.0-36.0); MEAN CORPUSCULAR VOLUME 92 fl (80-97); MONOCYTES % (AUTO) 7.1 % (3-13); RED BLOOD COUNT 4.89 10^6/uL (3.72-5.28); RED CELL DISTRIBUTION WIDTH 15.4 % (11.5-14.0); SEGMENTED NEUTROPHILS % (AUTO) 66.4 % (42-78); WHITE BLOOD COUNT 6.9 10^3/uL (4.0-10.5)
[2017-08-05 12:30] LABS: ALANINE AMINOTRANSFERASE 33 U/L (9-52); ALBUMIN 4.6 g/dL (3.5-5.0); ALKALINE PHOSPHATASE 92 U/L (38-126); ANION GAP 14 (5-19); ASPARTATE AMINO TRANSFERASE 22 U/L (14-36); BILIRUBIN,DIRECT 0.5 mg/dL (0.0-0.4); BILIRUBIN,TOTAL 0.7 mg/dL (0.2-1.3); BLOOD UREA NITROGEN 13 mg/dL (7-20); CALCIUM 9.9 mg/dL (8.4-10.2); CARBON DIOXIDE 29 mmol/L (22-30); CHLORIDE 101 mmol/L (98-107); CHOLESTEROL 85.51 mg/dL (0-200); CREATININE RESULT 0.91 mg/dL (0.52-1.25); Direct HDL 46 mg/dL (>40); GLUCOSE 92 mg/dL (75-110); POTASSIUM 4.1 mmol/L (3.6-5.0); SODIUM 144.1 mmol/L (137-145); TOTAL PROTEIN 7.3 g/dL (6.3-8.2); TRIGLYCERIDES 83 mg/dL (<150)
[2017-08-05 12:49] LABS: DIRECT LDL < 30 mg/dL (<100)
[2017-08-05 12:57] LABS: THYROID STIMULATING HORMONE 0.45 uIU/mL (0.47-4.68)
== END ==
LOC: OD 10:11
PROVIDERS: ATTEND Internal Medicine
DX: E03.9 Hypothyroidism, unspecified (principal); E78.00 Pure hypercholesterolemia, unspecified; I10 Essential (primary) hypertension; E11.9 Type 2 diabetes mellitus without complications; Z79.899 Other long term (current) drug therapy
CPT/HCPCS: 36415; 80053; 80061; 84439; 84443; 85025

== ENCOUNTER → 2018-09-21 | Outpatient (CLI) | payer MEDICARE, OTHER ==
[2018-09-21 11:17] LABS: ABSOLUTE LYMPHOCYTES (AUTO) 0.6 10^3/uL (0.5-4.7); ABSOLUTE MONOCYTES (AUTO) 0.3 10^3/uL (0.1-1.4); BASOPHILS % (AUTO) 0.7 % (0-2); EOSINOPHILS % (AUTO) 0.3 % (0-6); HEMATOCRIT 49.9 % (36.0-47.0); HEMOGLOBIN 16.4 g/dL (12.0-15.5); LYMPHOCYTES % (AUTO) 8.5 % (13-45); MEAN CORPUSCULAR HEMOGLOBIN 30.2 pg (27.0-33.4); MEAN CORPUSCULAR HGB CONC 32.8 g/dL (32.0-36.0); MEAN CORPUSCULAR VOLUME 92 fl (80-97); MONOCYTES % (AUTO) 4.4 % (3-13); PLATELET COUNT 275 10^3/uL (150-450); RED BLOOD COUNT 5.42 10^6/uL (3.72-5.28); RED CELL DISTRIBUTION WIDTH 17.9 % (11.5-14.0); SEGMENTED NEUTROPHILS % (AUTO) 86.1 % (42-78); TOTAL CELLS COUNTED % (AUTO) 100 %
[2018-09-21 11:33] LABS: ALANINE AMINOTRANSFERASE 24 U/L (9-52); ALBUMIN 4.5 g/dL (3.5-5.0); ALKALINE PHOSPHATASE 114 U/L (38-126); ANION GAP 11 (5-19); ASPARTATE AMINO TRANSFERASE 26 U/L (14-36); BILIRUBIN,DIRECT 0.2 mg/dL (0.0-0.4); BILIRUBIN,TOTAL 0.9 mg/dL (0.2-1.3); BLOOD UREA NITROGEN 15 mg/dL (7-20); CALCIUM 9.2 mg/dL (8.4-10.2); CARBON DIOXIDE 28 mmol/L (22-30); CHLORIDE 103 mmol/L (98-107); CHOLESTEROL 88.87 mg/dL (0-200); GLUCOSE 169 mg/dL (75-110); POTASSIUM 3.6 mmol/L (3.6-5.0); SODIUM 142.4 mmol/L (137-145); TOTAL PROTEIN 7.7 g/dL (6.3-8.2); TRIGLYCERIDES 70 mg/dL (<150)
[2018-09-21 11:44] LABS: DIRECT LDL 33 mg/dL (<100)
[2018-09-21 11:48] LABS: FREE T4 (FREE THYROXINE) 1.76 ng/dL (0.78-2.19)
[2018-09-21 12:01] LABS: THYROID STIMULATING HORMONE 2.75 uIU/mL (0.47-4.68)
== END ==
LOC: OD 10:45
PROVIDERS: ATTEND Internal Medicine
DX: I10 Essential (primary) hypertension (principal); E78.00 Pure hypercholesterolemia, unspecified; E03.9 Hypothyroidism, unspecified; E11.9 Type 2 diabetes mellitus without complications; Z79.899 Other long term (current) drug therapy
CPT/HCPCS: 36415; 80053; 80061; 84439; 84443; 85025

== ENCOUNTER 2018-11-12 13:13 | Inpatient (IN) | payer MEDICARE, OTHER ==
[2018-11-12] MEDS ORDERED: METHYLPREDNISOLONE INJ 125 MG/2 ML SDV ONE (13:17)
[2018-11-12] MEDS ORDERED: MAGNESIUM SULFATE/D5W 2 GM/200 ML RTUPB IV ONE (13:17)
[2018-11-12] MEDS ORDERED: IPRATROPIUM/ALBUTEROL 0.5-2.5 MG/3 ML AMPUL NEB ONE ×2 (13:17→14:36)
[2018-11-12] MEDS: MAGNESIUM SULFATE/D5W 1 GM/100 ML RTUPB IV SCH ×2 (13:18→14:18)
[2018-11-12] MEDS ORDERED: ONDANSETRON HCL INJ/PF 4 MG/2 ML SDV ONE (13:25)
--- NOTE | 2018-11-12 13:44 | ER Document Report ---
ED General - General Chief Complaint: Shortness Of Breath Stated Complaint: SHORTNESS OF BREATH Time Seen by Provider: 11/12/18 13:42 Mode of Arrival: Ambulatory Information source: Patient, [facility] Records Notes: 78-year-old female with COPD presents via EMS in respiratory distress. EMS reports that the patient was found on 5 L of oxygen with an O2 saturation of 68%. Patient states that her shortness of breath worsened yesterday. She denies any recent illness. She does no longer smoke. TRAVEL OUTSIDE OF THE [place] IN LAST 30 DAYS: No - HPI Onset: Yesterday Onset/Duration: Gradual, Persistent, Worse Quality of pain: No pain Severity: None Associated symptoms: Shortness of breath. denies: Chest pain, Nonproductive cough, Productive cough, Earache, Fever, Hurts to breath, Leg swelling, Nausea, Vomiting Exacerbated by: Denies Relieved by: Denies Similar symptoms previously: Yes Recently seen / treated by doctor: Yes - Related Data Allergies/Adverse Reactions: No Known Allergies Allergy (Verified 05/20/17 16:33) Past Medical History - General Information source: Patient, [facility] Records - Social History Smoking Status: Former Smoker Frequency of alcohol use: None Drug Abuse: None Lives with: Spouse/Significant other Family History: COPD Patient has suicidal ideation: No Patient has homicidal ideation: No - Past Medical History Cardiac Medical History: Reports: Hx Hypertension Denies: Hx Coronary Artery Disease, Hx Heart Attack Pulmonary Medical History: Reports: Hx COPD - slight case Denies: Hx Asthma, Hx Bronchitis, Hx Pneumonia Neurological Medical History: Denies: Hx Cerebrovascular Accident, Hx Seizures Endocrine Medical History: Reports: Hx Diabetes Mellitus Type 2, Hx Hypothyroidism Renal/ Medical History: Denies: Hx Peritoneal Dialysis Musculoskeletal Medical History: Reports Hx Arthritis Past Surgical History: Reports: Hx Abdominal Surgery - hernia, Hx Hysterectomy, Hx Thyroid Surgery - Immunizations Hx Diphtheria, Pertussis, Tetanus Vaccination: No Review of Systems - Review of Systems Notes: REVIEW OF SYSTEMS: CONSTITUTIONAL : Denies fever, chills, or sweats. Denies recent illness. Bobby es weight loss, recent hospitalizations. EENT: Denies visual changes, eye pain. Denies sore throat, oral lesions, difficulty swallowing. CARDIOVASCULAR: Denies chest pain. Denies palpitations. Denies lower extremity edema. RESPIRATORY: Denies cough. GASTROINTESTINAL: Denies abdominal pain or distention. Denies nausea, vomiting, or diarrhea. Denies blood in vomitus, stools, or per rectum. Denies black, tarry stools. Denies constipation. GENITOURINARY: Denies difficulty urinating, painful urination, frequency, blood in urine, or vaginal discharge. MUSCULOSKELETAL: Denies back or neck pain or stiffness. Denies joint pain or swelling. SKIN: Denies rash, lesions or sores. HEMATOLOGIC : Denies easy bruising or bleeding. LYMPHATIC: Denies swollen glands. NEUROLOGICAL: Denies confusion or altered mental status. Denies loss of consciousness. Denies dizziness or lightheadedness. Denies headache. Denies weakness or paralysis. Denies problems difficulty with ambulation, slurred speech. Denies sensory loss, numbness, or tingling. Denies seizures. PSYCHIATRIC: Denies anxiety or stress. Denies depression, suicidal ideation, or homicidal ideation. Denies visual or auditory hallucinations. Physical Exam - Vital signs Vitals: Resp BP Pulse Ox 30 H 135/78 H 95 11/12/18 13:23 11/12/18 13:23 11/12/18 13:23 - Notes Notes: PHYSICAL EXAMINATION: GENERAL: Moderate distress, tripoding, accessory muscle use HEAD: Atraumatic, normocephalic. EYES: Pupils equal round and reactive to light, extraocular movements intact, conjunctiva are normal. ENT: Nares patent, oropharynx clear without exudates. Moist mucous membranes. NECK: Normal range of motion, supple without lymphadenopathy LUNGS: Tachypnea, hypoxia, expiratory wheezing bilaterally in all lung price, increased work of breathing, inability to speak in full sentences. HEART: Tachycardic, regular rhythm. ABDOMEN: Soft, nontender, nondistended abdomen. No guarding, no rebound. No masses appreciated. Female : deferred Musculoskeletal: Normal range of motion, no pitting or edema. No cyanosis. NEUROLOGICAL: Cranial nerves grossly intact. Normal speech, normal gait. Normal sensory, motor exams PSYCH: Anxious SKIN: Warm, Dry, normal turgor, no rashes or lesions noted. Course - Re-evaluation Re-evalutation: 11/12/18 15:29 Laboratory 11/12/18 11/12/18 11/12/18 13:20 13:20 13:20 WBC 9.2 RBC 5.82 H Hgb 17.9 H Hct 53.6 H MCV 92 MCH 30.7 MCHC 33.3 RDW 17.0 H Plt Count 303 Seg Neutrophils % 87.0 H Lymphocytes % 9.6 L Monocytes % 2.0 L Eosinophils % 0.6 Basophils % 0.8 Absolute Neutrophils 8.0 Absolute Lymphocytes 0.9 Absolute Monocytes 0.2 Absolute Eosinophils 0.1 Absolute Basophils 0.1 Carbonic Acid HCO3/H2CO3 Ratio ABG pH ABG pCO2 ABG pO2 ABG HCO3 ABG Total CO2 ABG O2 Saturation ABG Base Excess FiO2 Sodium Cancelled Potassium Cancelled Chloride Cancelled Carbon Dioxide Cancelled Anion Gap Cancelled BUN Cancelled Creatinine Cancelled Est GFR ( Amer) Cancelled Est GFR (Non-Af Amer) Cancelled Glucose Cancelled Lactic Acid 2.2 H Calcium Cancelled Total Bilirubin Cancelled Direct Bilirubin Cancelled Neonat Total Bilirubin Cancelled Neonat Direct Bilirubin Cancelled Neonat Indirect Bili Cancelled AST Cancelled ALT Cancelled Alkaline Phosphatase Cancelled Total Protein Cancelled Albumin Cancelled 11/12/18 11/12/18 13:20 14:05 WBC RBC Hgb Hct MCV MCH MCHC RDW Plt Count Seg Neutrophils % Lymphocytes % Monocytes % Eosinophils % Basophils % Absolute Neutrophils Absolute Lymphocytes Absolute Monocytes Absolute Eosinophils Absolute Basophils Carbonic Acid 1.11 HCO3/H2CO3 Ratio 20:1 ABG pH 7.41 ABG pCO2 36.9 ABG pO2 64.0 L ABG HCO3 22.9 ABG Total CO2 24.1 ABG O2 Saturation 92.8 L ABG Base Excess -1.2 FiO2 60% Sodium 136.5 L Potassium 4.1 Chloride 100 Carbon Dioxide 23 Anion Gap 14 BUN 29 H Creatinine 1.02 Est GFR ( Amer) > 60 Est GFR (Non-Af Amer) 53 L Glucose 225 H Lactic Acid Calcium 9.6 Total Bilirubin 0.8 Direct Bilirubin 0.2 Neonat Total Bilirubin Not Reportable Neonat Direct Bilirubin Not Reportable Neonat Indirect Bili Not Reportable AST 31 ALT 40 Alkaline Phosphatase 108 Total Protein 7.4 Albumin 4.1 Chest X-Ray 11/12/18 13:25 IMPRESSION: Bilateral pleural thickening or effusions. Otherwise, no acute disease. Temp Pulse Resp BP Pulse Ox 29 H 115/67 94 11/12/18 14:15 11/12/18 13:40 11/12/18 14:15 78-year-old female with COPD presents in respiratory distress on CPAP from home. EMS states that they found the patient with an O2 saturation of 78%. She did receive breathing treatments in route without improvement of her tachypnea, accessory muscle use. Patient was immediately transferred to our BiPAP machine and had an improvement in her oxygen saturation. She was administered Solu- Medrol, 2 g of magnesium and Zofran. Patient denies any recent illness except for rhinorrhea. She cannot identify any triggers. She no longer smokes. CBC is without leukocytosis or anemia. CMP shows hyperglycemia without evidence of DKA. Lactate mildly elevated at 2.2. ABG was obtained and does show hypoxia. On reevaluation patient is resting more comfortably. Her accessory muscle use has greatly improved. She states that she feels much better but is agreeable for admission. I have spoke to the hospitalist who accepts the admission to the [facility]. 11/12/18 22:19 - Vital Signs Vital signs: Temp Pulse Resp BP Pulse Ox 86 22 H 116/61 95 11/12/18 19:44 11/12/18 19:44 11/12/18 18:57 11/12/18 19:44 - Laboratory Result Diagrams: 11/12/18 13:20 11/12/18 14:05 Laboratory results interpreted by me: 11/12/18 11/12/18 11/12/18 13:20 13:20 13:20 RBC 5.82 H Hgb 17.9 H Hct 53.6 H RDW 17.0 H Seg Neutrophils % 87.0 H Lymphocytes % 9.6 L Monocytes % 2.0 L ABG pO2 64.0 L ABG O2 Saturation 92.8 L Sodium BUN Est GFR (Non-Af Amer) Glucose Lactic Acid 2.2 H 11/12/18 14:05 RBC Hgb Hct RDW Seg Neutrophils % Lymphocytes % Monocytes % ABG pO2 ABG O2 Saturation Sodium 136.5 L BUN 29 H Est GFR (Non-Af Amer) 53 L Glucose 225 H Lactic Acid - Diagnostic Test Radiology reviewed: Image reviewed, Reports reviewed - EKG Interpretation by Ks EKG shows normal: Sinus rhythm Rate: Tachycardia Rhythm: NSR When compared to previous EKG there are: No significant change Critical Care Note - Critical Care Note Total time excluding time spent on procedures (mins): 40 - Minutes of critical care time spent in direct contact evaluating and reevaluating the patient, treating symptoms, reviewing labs and studies and speaking with family and consultants excluding any procedures Discharge - Discharge Clinical Impression: Acute respiratory failure with hypoxia, Hyperglycemia COPD (chronic obstructive pulmonary disease) Qualifiers: COPD type: unspecified COPD Qualified Code(s): J44.9 - Chronic obstructive pulmonary disease, unspecified Condition: Fair Disposition: ADMITTED INPATIENT Admitting Provider: Hospitalist Unit Admitted: [facility]
[2018-11-12 13:46] LABS: ARTERIAL BLOOD BASE EXCESS -1.2 mmol/L; ARTERIAL BLOOD FIO2 60%; ARTERIAL BLOOD H2CO3 1.11 mmol/L (1.05-1.35); ARTERIAL BLOOD HCO3 22.9 mmol/L (20-24); ARTERIAL BLOOD O2 SATURATION 92.8 % (94-98); ARTERIAL BLOOD PCO2 36.9 mmHg (35-45); ARTERIAL BLOOD PH 7.41 (7.35-7.45); ARTERIAL BLOOD TOTAL CO2 24.1 mmol/L (21-25)
[2018-11-12 13:51] LABS: ABSOLUTE BASOPHILS # (AUTO) 0.1 10^3/uL (0.0-0.2); ABSOLUTE EOSINOPHILS # (AUTO) 0.1 10^3/uL (0.0-0.6); ABSOLUTE LYMPHOCYTES (AUTO) 0.9 10^3/uL (0.5-4.7); ABSOLUTE MONOCYTES (AUTO) 0.2 10^3/uL (0.1-1.4); BASOPHILS % (AUTO) 0.8 % (0-2); EOSINOPHILS % (AUTO) 0.6 % (0-6); HEMATOCRIT 53.6 % (36.0-47.0); HEMOGLOBIN 17.9 g/dL (12.0-15.5); LYMPHOCYTES % (AUTO) 9.6 % (13-45); MEAN CORPUSCULAR HEMOGLOBIN 30.7 pg (27.0-33.4); MEAN CORPUSCULAR HGB CONC 33.3 g/dL (32.0-36.0); MEAN CORPUSCULAR VOLUME 92 fl (80-97); PLATELET COUNT 303 10^3/uL (150-450); RED BLOOD COUNT 5.82 10^6/uL (3.72-5.28); TOTAL CELLS COUNTED % (AUTO) 100 %; WHITE BLOOD COUNT 9.2 10^3/uL (4.0-10.5)
[2018-11-12 14:33] LABS: ALANINE AMINOTRANSFERASE 40 U/L (9-52); ALBUMIN 4.1 g/dL (3.5-5.0); ALKALINE PHOSPHATASE 108 U/L (38-126); ANION GAP 14 (5-19); ASPARTATE AMINO TRANSFERASE 31 U/L (14-36); BILIRUBIN,DIRECT 0.2 mg/dL (0.0-0.4); BILIRUBIN,TOTAL 0.8 mg/dL (0.2-1.3); BLOOD UREA NITROGEN 29 mg/dL (7-20); CALCIUM 9.6 mg/dL (8.4-10.2); CARBON DIOXIDE 23 mmol/L (22-30); CHLORIDE 100 mmol/L (98-107); GLUCOSE 225 mg/dL (75-110); POTASSIUM 4.1 mmol/L (3.6-5.0); SODIUM 136.5 mmol/L (137-145); TOTAL PROTEIN 7.4 g/dL (6.3-8.2)
--- NOTE | 2018-11-12 14:34 | RADIOLOGY REPORT (SQ) ---
EXAM DESCRIPTION: CHEST SINGLE VIEW COMPLETED DATE/TIME: 11/12/2018 2:01 pm REASON FOR STUDY: er 2 COMPARISON: 05/13/2015. EXAM PARAMETERS: NUMBER OF VIEWS: One view. TECHNIQUE: Single frontal radiographic view of the chest acquired. RADIATION DOSE: NA LIMITATIONS: None. FINDINGS: LUNGS AND PLEURA: Since previous study there has been some decreased aeration of lung base s with prominence of interstitial markings. Bilateral pleural thickening or effusions. MEDIASTINUM AND HILAR STRUCTURES: No masses. Contour normal. HEART AND VASCULAR STRUCTURES: The heart is borderline in size with aortic atherosclerosis. BONES: No acute findings. HARDWARE: None in the chest. OTHER: Chest leads in place. IMPRESSION: Bilateral pleural thickening or effusions. Otherwise, no acute disease. TECHNICAL DOCUMENTATION: JOB ID: [id number] 2010 [employer]- All Rights Reserved Reading location - IP/workstation name: [email or web address]
[2018-11-12] MEDS ORDERED: ONDANSETRON HCL INJ/PF 4 MG/2 ML SDV IV ONE (14:37)
[2018-11-12] MEDS ORDERED: METHYLPREDNISOLONE INJ 125 MG/2 ML SDV IV ONE (15:01)
[2018-11-12] MEDS ORDERED: ACETAMINOPHEN 325 MG TABLET PO PRN (16:06)
[2018-11-12] MEDS ORDERED: DEXTROSE 40% GEL 15 GM TUBE PO PRN ×2 (16:11)
[2018-11-12] MEDS ORDERED: GLUCAGON,HUMAN RECOMB 1 MG INJ IM PRN (16:11)
[2018-11-12] MEDS ORDERED: HYDRALAZINE HCL INJ/PF 20 MG/1 ML SDV IV PRN (16:11)
[2018-11-12] MEDS ORDERED: DEXTROSE 50%-WATER 25 GM/50 ML DISP.SYRIN IV PRN ×2 (16:11)
--- NOTE | 2018-11-12 16:33 | PDOC H&P ---
History of Present Illness Admission Date/PCP: BERHANE DENTON MD Patient complains of: SOB History of Present Illness: MARTA ANDERS is a 78 year old female with a history of HTN, DM2, SURESH not on CPAP, and COPD who presents with 2 days of worsening SOB. Patient states that she has become progressively SOB over the last few days. She denies fevers or chills, recently illnesses, or sick contacts. She has noticed worsening sinus issues, sneezing, nasal drainage, and occasional cough lately. She thinks this might be allergy/sinus related. Patient has a history of smoking however does not currently smoke. She has a formal diagnosis of COPD and is currently on 5L O2 all the time. She is followed by a schedule manager in [place] who manages her O2. She states that she does not use an inhaler at home "because it makes her chest tight". She denies using systemic steroids at this time. Patient's last hospitalization was in Jun due to COPD exacerbation. She denies chest pain, abdominal pain, NV. Her appetite has been good. At time of EMS evaluation, patient's O2 sat was 62%. It is unclear if she was wearing her home O2 at that time. In ED, ABG showed pO2 of 64 but there was no CO2 retention. Patient also has a history of SURESH however does not use CPAP bec ause the mask "hurts my face". She received IV steroids, breathing treatment, and was placed on BiPAP. At time of my examination, she was feeling signficantly better. Will admit to hospitalist service for further evaluation. Past Medical History Cardiac Medical History: Reports: Hypertension Denies: Coronary Artery Disease, Myocardial Infarction Pulmonary Medical History: Reports: Chronic Obstructive Pulmonary Disease (COPD) - slight case Denies: Asthma, Bronchitis, Pneumonia Neurological Medical History: Denies: Seizures Endocrine Medical History: Reports: Diabetes Mellitus Type 2, Hypothyroidism Musculoskeltal Medical History: Reports: Arthritis Hematology: Comment Only: Anemia - on ASA Past Surgical History Past Surgical History: Reports: Hysterectomy Social History Information Source: Patient Lives with: Spouse/Significant other Smoking Status: Former Smoker Frequency of Alcohol Use: Occasional Hx Recreational Drug Use: No Drugs: None Hx Prescription Drug Abuse: No Family History Family History: COPD Parental Family History Reviewed: Yes Children Family History Reviewed: NA Sibling(s) Family History Reviewed.: NA Medication/Allergy Home Medications: Empagliflozin [Jardiance] 25 mg PO DAILY 05/20/17 Diltiazem HCl [Diltiazem 24Hr Cd] 120 mg PO DAILY 05/21/17 Fluticasone/Salmeterol [Advair 250-50 Diskus 14 Dose/Diskus] 1 puff IH Q12 05/21/17 Levothyroxine Sodium [Synthroid 0.112 mg Tablet] 0.112 mg PO DAILY 05/21/17 Omeprazole 20 mg PO DAILY 05/21/17 Acetaminophen [Tylenol 325 mg Tablet] 650 mg PO Q4HP PRN tablet 05/23/17 Fluticasone Propionate [Flonase Nasal [place] 50 Mcg/[place] 16 gm] 2 spray NASL DAILY spray.pump 05/23/17 Levofloxacin [Levaquin 750 mg Tablet] 750 mg PO DAILY #5 tablet 05/23/17 Prednisone [Deltasone 20 mg Tablet] 20 mg PO DAILY #7 tablet 05/23/17 Allergies/Adverse Reactions: No Known Allergies Allergy (Verified 05/20/17 16:33) Review of Systems All systems: reviewed and no additional remarkable complaints except as stated Physical Exam Vital Signs: Temp Pulse Resp BP Pulse Ox 29 H 115/67 94 11/12/18 14:15 11/12/18 13:40 11/12/18 14:15 Intake & Output 11/11/18 11/12/18 11/13/18 05:59 06:59 06:59 Intake Total 100 Balance 100 General appearance: PRESENT: no acute distress, cooperative, well-developed, well-nourished, other - BIPAP in place Head exam: PRESENT: atraumatic, normocephalic Eye exam: PRESENT: PERRLA Teeth exam: PRESENT: other - Unable to assess due to BiPAP mask Respiratory exam: PRESENT: rhonchi - At bases, tachypnea Cardiovascular exam: PRESENT: +S1, +S2. ABSENT: tachycardia GI/Abdominal exam: PRESENT: normal bowel sounds, soft. ABSENT: tenderness Extremities exam: ABSENT: +1 edema Neurological exam: PRESENT: alert, awake, CN II-XII grossly intact. ABSENT: aphasic Psychiatric exam: PRESENT: appropriate affect, normal mood Skin exam: PRESENT: dry, intact Results Laboratory Results: 11/12/18 13:20 11/12/18 14:05 0311/12/18 11/12/18 13:20 13:20 13:20 WBC 9.2 RBC 5.82 H Hgb 17.9 H Hct 53.6 H MCV 92 MCH 30.7 MCHC 33.3 RDW 17.0 H Plt Count 303 Seg Neutrophils % 87.0 H Lymphocytes % 9.6 L Monocytes % 2.0 L Eosinophils % 0.6 Basophils % 0.8 Absolute Neutrophils 8.0 Absolute Lymphocytes 0.9 Absolute Monocytes 0.2 Absolute Eosinophils 0.1 Absolute Basophils 0.1 Carbonic Acid HCO3/H2CO3 Ratio ABG pH ABG pCO2 ABG pO2 ABG HCO3 ABG O2 Saturation ABG Base Excess FiO2 Sodium Cancelled Potassium Cancelled Chloride Cancelled Carbon Dioxide Cancelled Anion Gap Cancelled BUN Cancelled Creatinine Cancelled Est GFR ( Amer) Cancelled Est GFR (Non-Af Amer) Cancelled Glucose Cancelled Lactic Acid 2.2 H Calcium Cancelled Total Bilirubin Cancelled AST Cancelled ALT Cancelled Alkaline Phosphatase Cancelled Total Protein Cancelled Albumin Cancelled 11/12/18 11/12/18 13:20 14:05 WBC RBC Hgb Hct MCV MCH MCHC RDW Plt Count Seg Neutrophils % Lymphocytes % Monocytes % Eosinophils % Basophils % Absolute Neutrophils Absolute Lymphocytes Absolute Monocytes Absolute Eosinophils Absolute Basophils Carbonic Acid 1.11 HCO3/H2CO3 Ratio 20:1 ABG pH 7.41 ABG pCO2 36.9 ABG pO2 64.0 L ABG HCO3 22.9 ABG O2 Saturation 92.8 L ABG Base Excess -1.2 FiO2 60% Sodium 136.5 L Potassium 4.1 Chloride 100 Carbon Dioxide 23 Anion Gap 14 BUN 29 H Creatinine 1.02 Est GFR ( Amer) > 60 Est GFR (Non-Af Amer) 53 L Glucose 225 H Lactic Acid Calcium 9.6 Total Bilirubin 0.8 AST 31 ALT 40 Alkaline Phosphatase 108 Total Protein 7.4 Albumin 4.1 Impressions: Chest X-Ray 11/12/18 13:25 IMPRESSION: Bilateral pleural thickening or effusions. Otherwise, no acute disease. Assessment & Plan - Diagnosis (1) Acute respiratory failure with hypoxia Is this a current diagnosis for this admission?: Yes Plan: Most likely due to acute COPD exacerbation. Also has history of SURESH and is not complaint with CPAP. No evidence of PNA on CXR or clinical signs/symptoms of infectious process. - CXR shows pleural thickening without other obvious infiltrate - Will treat with Duonebs and prednisone 40mg * 4 days starting 11/13 - Continue BiPAP for now but can take off later today - O2 sat goal >88% (2) Diabetes mellitus Qualifiers: Diabetes mellitus type: type 2 Is this a current diagnosis for this admission?: Yes Plan: - Holding home oral medications, med rec pending - Will check HgA1c in AM - Started LDISS AC/HS (3) COPD (chronic obstructive pulmonary disease) Qualifiers: COPD type: unspecified COPD Qualified Code(s): J44.9 - Chronic obstructive pulmonary disease, unspecified Is this a current diagnosis for this admission?: Yes Plan: Per above - Will need good outpatient regimen at time of discharge - Encourage compliance - PT consult (4) Essential hypertension Is this a current diagnosis for this admission?: Yes Plan: Awaiting med reconcilliation - Ordered hydralazine IV PRN (5) SURESH (obstructive sleep apnea) Is this a current diagnosis for this admission?: Yes Plan: Has been previously diagnosed - Needs CPAP at home - Social work consulted for assistance - Time Time Spent: 50 to 70 Minutes Anticipated discharge: Home with Homehealth Within: within 48 hours - Inpatient Certification Medical Necessity: Need Close Monitoring Due to Risk of Patient Decompensation
[2018-11-12] MEDS ORDERED: ENOXAPARIN SODIUM INJ 40 MG/0.4 ML DISP.SYRIN SUBCUT ONE (17:00)
[2018-11-12] MEDS ORDERED: INSULIN REG, HUMAN 100 UNIT/ML 3 ML VIAL (PYX) ONE (18:08)
[2018-11-12] MEDS: IPRATROPIUM/ALBUTEROL 0.5-2.5 MG/3 ML AMPUL NEB SCH (19:43)
[2018-11-12] MEDS: INSULIN LISPRO 100 UNIT/ML 3 ML VIAL SUBCUT SCH (22:27)
--- NOTE | 2018-11-13 01:24 | EKG REPORT ---
SEVERITY:- ABNORMAL ECG - SINUS TACHYCARDIA BIATRIAL ABNORMALITIES LEFT POSTERIOR FASCICULAR BLOCK CONSIDER ANTERIOR INFARCT : Confirmed by: Darby Heard MD 13-Nov-2018 01:23:51
[2018-11-13 05:05] LABS: ABSOLUTE LYMPHOCYTES (AUTO) 0.6 10^3/uL (0.5-4.7); ABSOLUTE MONOCYTES (AUTO) 0.1 10^3/uL (0.1-1.4); ABSOLUTE NEUT (AUTO) 6.6 10^3/uL (1.7-8.2); BASOPHILS % (AUTO) 0.1 % (0-2); HEMATOCRIT 44.5 % (36.0-47.0); LYMPHOCYTES % (AUTO) 7.6 % (13-45); MEAN CORPUSCULAR HEMOGLOBIN 30.8 pg (27.0-33.4); MEAN CORPUSCULAR HGB CONC 33.3 g/dL (32.0-36.0); MEAN CORPUSCULAR VOLUME 93 fl (80-97); MONOCYTES % (AUTO) 1.2 % (3-13); PLATELET COUNT 233 10^3/uL (150-450); RED BLOOD COUNT 4.81 10^6/uL (3.72-5.28); RED CELL DISTRIBUTION WIDTH 17.2 % (11.5-14.0); SEGMENTED NEUTROPHILS % (AUTO) 91.1 % (42-78); TOTAL CELLS COUNTED % (AUTO) 100 %; WHITE BLOOD COUNT 7.3 10^3/uL (4.0-10.5)
[2018-11-13 05:12] LABS: HEMOGLOBIN 14.8 g/dL (12.0-15.5)
[2018-11-13 05:29] LABS: ANION GAP 18 (5-19); BLOOD UREA NITROGEN 36 mg/dL (7-20); CARBON DIOXIDE 18 mmol/L (22-30); CHLORIDE 101 mmol/L (98-107); GLUCOSE 208 mg/dL (75-110); SODIUM 137.3 mmol/L (137-145)
[2018-11-13 05:34] LABS: POTASSIUM 5.4 mmol/L (3.6-5.0)
[2018-11-13] MEDS: IPRATROPIUM/ALBUTEROL 0.5-2.5 MG/3 ML AMPUL NEB SCH ×3 (07:51→19:56)
[2018-11-13] MEDS: INSULIN LISPRO 100 UNIT/ML 3 ML VIAL SUBCUT SCH ×4 (09:36→21:39)
[2018-11-13] MEDS ORDERED: PREDNISONE 20 MG TABLET PO SCH (10:00)
--- NOTE | 2018-11-13 13:05 | PDOC PROGRESS REPORT ---
Subjective Progress Note for:: 11/13/18 Subjective:: This is a 78 year old female with a history of HTN, DM2, SURESH not compliant with CPAP, and COPD on 5lpm who presented with 2 days of worsening SOB. Yasmani was admitted for COPD exacerbation. Overnight, per RN, patient desaturated to 78% off BIPAP. This morning, she says her breathing has improved from yesterday. Denies chest pain. Currently saturating well on NRB. Reason For Visit: ACUTE COPD EXACERBATION Physical Exam Vital Signs: Temp Pulse Resp BP Pulse Ox 97.1 F 96 20 129/85 H 90 L 11/13/18 07:42 11/13/18 07:51 11/13/18 07:51 11/13/18 07:42 11/13/18 07:51 Intake & Output 11/12/18 11/13/18 11/14/18 06:59 06:59 06:59 Intake Total 200 Balance 200 Weight 149 lb 0.52 oz 149 lb 0.52 oz General appearance: PRESENT: no acute distress, well-developed, well-nourished Head exam: PRESENT: atraumatic, normocephalic Eye exam: PRESENT: conjunctiva pink, EOMI, PERRLA. ABSENT: scleral icterus Ear exam: PRESENT: normal external ear exam Mouth exam: PRESENT: moist, tongue midline Neck exam: ABSENT: carotid bruit, JVD, lymphadenopathy, thyromegaly Respiratory exam: PRESENT: wheezes - mild wheezes. ABSENT: rales, rhonchi Cardiovascular exam: PRESENT: RRR. ABSENT: diastolic murmur, rubs, systolic murmur Pulses: PRESENT: normal dorsalis pedis pul GI/Abdominal exam: PRESENT: normal bowel sounds, soft. ABSENT: distended, guarding, mass, organolmegaly, rebound, tenderness Rectal exam: PRESENT: deferred Neurological exam: PRESENT: alert, awake, oriented to person, oriented to place, oriented to time, oriented to situation, CN II-XII grossly intact. ABSENT: motor sensory deficit Results Laboratory Results: 11/13/18 04:02 11/13/18 04:02 11/12/18 11/12/18 11/12/18 13:20 13:20 13:20 WBC 9.2 RBC 5.82 H Hgb 17.9 H Hct 53.6 H MCV 92 MCH 30.7 MCHC 33.3 RDW 17.0 H Plt Count 303 Seg Neutrophils % 87.0 H Lymphocytes % 9.6 L Monocytes % 2.0 L Eosinophils % 0.6 Basophils % 0.8 Absolute Neutrophils 8.0 Absolute Lymphocytes 0.9 Absolute Monocytes 0.2 Absolute Eosinophils 0.1 Absolute Basophils 0.1 Carbonic Acid HCO3/H2CO3 Ratio ABG pH ABG pCO2 ABG pO2 ABG HCO3 ABG O2 Saturation ABG Base Excess FiO2 Sodium Cancelled Potassium Cancelled Chloride Cancelled Carbon Dioxide Cancelled Anion Gap Cancelled BUN Cancelled Creatinine Cancelled Est GFR ( Amer) Cancelled Est GFR (Non-Af Amer) Cancelled Glucose Cancelled Lactic Acid 2.2 H Calcium Cancelled Total Bilirubin Cancelled AST Cancelled ALT Cancelled Alkaline Phosphatase Cancelled Total Protein Cancelled Albumin Cancelled 11/12/18 11/12/18 11/12/18 13:20 14:05 18:00 WBC RBC Hgb Hct MCV MCH MCHC RDW Plt Count Seg Neutrophils % Lymphocytes % Monocytes % Eosinophils % Basophils % Absolute Neutrophils Absolute Lymphocytes Absolute Monocytes Absolute Eosinophils Absolute Basophils Carbonic Acid 1.11 HCO3/H2CO3 Ratio 20:1 ABG pH 7.41 ABG pCO2 36.9 ABG pO2 64.0 L ABG HCO3 22.9 ABG O2 Saturation 92.8 L ABG Base Excess -1.2 FiO2 60% Sodium 136.5 L Potassium 4.1 Chloride 100 Carbon Dioxide 23 Anion Gap 14 BUN 29 H Creatinine 1.02 Est GFR ( Amer) > 60 Est GFR (Non-Af Amer) 53 L Glucose 225 H Lactic Acid 3.2 H Calcium 9.6 Total Bilirubin 0.8 AST 31 ALT 40 Alkaline Phosphatase 108 Total Protein 7.4 Albumin 4.1 11/13/18 11/13/18 11/13/18 04:02 04:02 11:00 WBC 7.3 RBC 4.81 Hgb 14.8 D Hct 44.5 MCV 93 MCH 30.8 MCHC 33.3 RDW 17.2 H Plt Count 233 Seg Neutrophils % 91.1 H Lymphocytes % 7.6 L Monocytes % 1.2 L Eosinophils % 0.0 Basophils % 0.1 Absolute Neutrophils 6.6 Absolute Lymphocytes 0.6 Absolute Monocytes 0.1 Absolute Eosinophils 0.0 Absolute Basophils 0.0 Carbonic Acid HCO3/H2CO3 Ratio ABG pH ABG pCO2 ABG pO2 ABG HCO3 ABG O2 Saturation ABG Base Excess FiO2 Sodium 137.3 Potassium 5.4 H D Chloride 101 Carbon Dioxide 18 L Anion Gap 18 BUN 36 H Creatinine 1.18 Est GFR ( Amer) 54 L Est GFR (Non-Af Amer) 45 L Glucose 208 H Lactic Acid 1.6 Calcium 10.0 Total Bilirubin AST ALT Alkaline Phosphatase Total Protein Albumin Impressions: Chest X-Ray 11/12/18 13:25 IMPRESSION: Bilateral pleural thickening or effusions. Otherwise, no acute dis ease. Assessment & Plan - Diagnosis (1) Acute on chronic respiratory failure with hypoxemia Is this a current diagnosis for this admission?: Yes Plan: Secondary to COPD exacerbation. Currently on BIPAP. Will try weaning off BIPAP again. (2) COPD exacerbation Is this a current diagnosis for this admission?: Yes Plan: Currently on oral steroids. Switch to IV for now. Will pursue a VQ scan to further assess for PE as well. (3) Lactic acidosis Is this a current diagnosis for this admission?: Yes Plan: Recheck lactic acid today. - Time Time Spent with patient: 25-34 minutes
[2018-11-13] MEDS ORDERED: ENOXAPARIN SODIUM INJ 40 MG/0.4 ML DISP.SYRIN SUBCUT SCH (16:00)
--- NOTE | 2018-11-13 16:33 | RADIOLOGY REPORT (SQ) ---
EXAM DESCRIPTION: NM LUNG VENT/PERF SCAN COMPLETED DATE/TIME: 11/13/2018 4:24 pm REASON FOR STUDY: hypoxia COMPARISON: Chest x-ray dated 11/13/2018. RADIONUCLIDE AND DOSE: 5.23 millicuries TC-99m MAA Intravenous 31.1 millicuries TC-99m DTPA Inhaled aerosol TECHNIQUE: Two views of the lungs acquired post ventilation of DTPA aerosol. Eight matching views o f the lungs acquired following injection of MAA. LIMITATIONS: None. FINDINGS: VENTILATION: Symmetric, slightly heterogenous, distribution of DTPA aerosol during ventila tory phase. No significant areas of photopenia. PERFUSION: Perfusion images with normal homogenous activity and no wedge-shaped or segmental defects. No ventilation-perfusion mismatches. OTHER: No other significant finding. IMPRESSION: NORMAL VENTILATION-PERFUSION LUNG SCAN. NEGATIVE FOR PULMONARY EMBOLI. TECHNICAL DOCUMENTATION: JOB ID: [id number] [employer]- All Rights Reserved Reading location - IP/workstation name: [email or web address]
--- NOTE | 2018-11-13 16:34 | RADIOLOGY REPORT (SQ) ---
EXAM DESCRIPTION: CHEST 2 VIEWS COMPLETED DATE/TIME: 11/13/2018 4:21 pm REASON FOR STUDY: HYPOXIA (PT ALSO FOR NM VQ) COMPARISON: 11/12/2018. EXAM PARAMETERS: NUMBER OF VIEWS: two views TECHNIQUE: Digital Frontal and Lateral radiographic views of the chest acquired. RADIATION DOSE: NA LIMITATIONS: none FINDINGS: LUNGS AND PLEURA: Mild interstitial prominence. Faint hazy diffuse airspace disease. Sma ll right pleural effusion. No lobar consolidations. MEDIASTINUM AND HILAR STRUCTURES: No masses or contour abnormalities. HEART AND VASCULAR STRUCTURES: Heart normal size. No evidence for failure. BONES: No acute findings. HARDWARE: None in the chest. OTHER: No other significant finding. IMPRESSION: MILD INTERSTITIAL PROMINENCE WITH SMALL RIGHT PLEURAL EFFUSION. MAY BE DUE TO INTERSTIT IAL EDEMA. NO LOBAR CONSOLIDATIONS. TECHNICAL DOCUMENTATION: JOB ID: [id number] [employer]- All Rights Reserved Reading location - IP/workstation name: [email or web address]
[2018-11-13] MEDS: ENOXAPARIN SODIUM INJ 40 MG/0.4 ML DISP.SYRIN SUBCUT SCH (17:49)
[2018-11-13] MEDS: METHYLPREDNISOLONE INJ 40 MG/1 ML SDV IV SCH (21:29)
[2018-11-13] MEDS ORDERED: ATORVASTATIN CALCIUM 10 MG TABLET PO ONE (23:15)
[2018-11-13] MEDS ORDERED: ALPRAZOLAM 0.5 MG TABLET PO ONE (23:15)
[2018-11-13] MEDS ORDERED: DILTIAZEM HCL 120 MG CAP.SR.24H PO ONE (23:30)
[2018-11-14] MEDS: LEVOTHYROXINE SODIUM 0.1 MG TABLET PO SCH (05:11)
[2018-11-14] MEDS: IPRATROPIUM/ALBUTEROL 0.5-2.5 MG/3 ML AMPUL NEB SCH ×3 (08:12→19:46)
[2018-11-14] MEDS: METHYLPREDNISOLONE INJ 40 MG/1 ML SDV IV SCH ×2 (09:26→22:16)
[2018-11-14] MEDS: INSULIN LISPRO 100 UNIT/ML 3 ML VIAL SUBCUT SCH ×4 (09:26→22:23)
[2018-11-14] MEDS: DILTIAZEM HCL 240 MG CAPSULE.CR PO SCH (09:26)
[2018-11-14] MEDS: ASPIRIN 81 MG TABLET, ENT COATED PO SCH (09:26)
--- NOTE | 2018-11-14 17:16 | PDOC PROGRESS REPORT ---
Subjective Progress Note for:: 11/14/18 Subjective:: The patient is resting in her bed. She states she is feeling much better since coming to the hospital but she still gets short of breath if she gets up and moves around. She is still above her baseline oxygen requirements. Otherwise though she denies fever or shaking chills. No chest pain or heart palpitations. No nausea vomiting or diarrhea. No urinary complaints. Reason For Visit: ACUTE COPD EXACERBATION Physical Exam Vital Signs: Temp Pulse Resp BP Pulse Ox 97.3 F 89 18 118/73 96 11/14/18 16:21 11/14/18 16:21 11/14/18 16:21 11/14/18 16:21 11/14/18 16:21 Intake & Output 11/13/18 11/14/18 11/15/18 06:59 06:59 06:59 Intake Total 200 1194 Balance 200 1194 Weight 67.6 kg 67.2 kg General appearance: PRESENT: no acute distress, well-developed, well-nourished Head exam: PRESENT: atraumatic, normocephalic Mouth exam: PRESENT: moist, tongue midline Neck exam: ABSENT: carotid bruit, JVD, lymphadenopathy, thyromegaly Respiratory exam: PRESENT: decreased breath sounds - She is diminished in the lower bases bilaterally as well Cardiovascular exam: PRESENT: RRR. ABSENT: diastolic murmur, rubs, systolic murmur GI/Abdominal exam: PRESENT: normal bowel sounds, soft. ABSENT: distended, guarding, mass, organolmegaly, rebound, tenderness Rectal exam: PRESENT: deferred Extremities exam: PRESENT: full ROM. ABSENT: calf tenderness, clubbing, pedal edema Neurological exam: PRESENT: alert, awake, oriented to person, oriented to place, oriented to time, oriented to situation, CN II-XII grossly intact. ABSENT: motor sensory deficit Psychiatric exam: PRESENT: appropriate affect, normal mood. ABSENT: homicidal ideation, suicidal ideation Skin exam: PRESENT: dry, intact, warm. ABSENT: cyanosis, rash Results Laboratory Results: 11/13/18 04:02 11/13/18 04:02 Impressions: Chest X-Ray 11/13/18 00:00 IMPRESSION: MILD INTERSTITIAL PROMINENCE WITH SMALL RIGHT PLEURAL EFFUSION. MAY BE DUE TO INTERSTITIAL EDEMA. NO LOBAR CONSOLIDATIONS. [facility] 11/13/18 12:50 IMPRESSION: NORMAL VENTILATION-PERFUSION LUNG SCAN. NEGATIVE FOR PULMONARY EMBOLI. Assessment & Plan - Diagnosis (1) Acute on chronic respiratory failure with hypoxemia Is this a current diagnosis for this admission?: Yes Plan: The patient is still above her baseline oxygen requirements. Her respiratory failure is due to a COPD exacerbation. Continue aggressive breathing treatments and good pulmonary toilet. Therapy will be outlined below. (2) COPD with exacerbation Is this a current diagnosis for this admission?: Yes Plan: She is still wheezing and is quite diminished. We will continue IV Solu-Medrol today. Hopefully we can change her back to an oral regimen tomorrow. (3) SURESH (obstructive sleep apnea) Is this a current diagnosis for this admission?: Yes Plan: Continue CPAP at night (4) Diabetes Is this a current diagnosis for this admission?: Yes Plan: Blood sugar is uncontrolled due to steroids. She will continue sliding scale coverage however I will add back her Jardiance which can be relabeled for use here in the hospital. Also will place her back on her metformin. (5) Essential hypertension Is this a current diagnosis for this admission?: Yes Plan: Stable at this point. (6) Hyperkalemia Is this a current diagnosis for this admission?: Yes Plan: I will give her a dose of Kayexalate. She will have a chemistry panel drawn in the morning (7) Full code status Is this a current diagnosis for this admission?: Yes - Inpatient Certification Medical Necessity: Other - Inpatient hospitalization remains necessary. Overall the patient is slowly improving but is still above her baseline oxygen requirements. She is requiring parenteral steroids here in the hospital. I suspect it will be another day or 2 before she turns around. Hopefully will get her out of the hospital within the next 48 hours.
[2018-11-14] MEDS ORDERED: SODIUM POLYSTYRENE SULFONATE 15 GM/60 ML PO ONE (18:00)
[2018-11-14] MEDS: ENOXAPARIN SODIUM INJ 40 MG/0.4 ML DISP.SYRIN SUBCUT SCH (18:03)
[2018-11-14] MEDS: METFORMIN HCL 500 MG TABLET PO SCH (18:03)
[2018-11-14] MEDS: DILTIAZEM HCL 120 MG CAP.SR.24H PO SCH (22:16)
[2018-11-14] MEDS: ATORVASTATIN CALCIUM 10 MG TABLET PO SCH (22:16)
[2018-11-14] MEDS: ALPRAZOLAM 0.5 MG TABLET PO SCH (22:16)
[2018-11-15 04:59] LABS: HEMATOCRIT 41.8 % (36.0-47.0); HEMOGLOBIN 13.7 g/dL (12.0-15.5); MEAN CORPUSCULAR HEMOGLOBIN 30.2 pg (27.0-33.4); MEAN CORPUSCULAR HGB CONC 32.8 g/dL (32.0-36.0); MEAN CORPUSCULAR VOLUME 92 fl (80-97); PLATELET COUNT 234 10^3/uL (150-450); RED BLOOD COUNT 4.54 10^6/uL (3.72-5.28); RED CELL DISTRIBUTION WIDTH 17.6 % (11.5-14.0); WHITE BLOOD COUNT 12.3 10^3/uL (4.0-10.5)
[2018-11-15 05:28] LABS: ANION GAP 12 (5-19); BLOOD UREA NITROGEN 31 mg/dL (7-20); CALCIUM 9.3 mg/dL (8.4-10.2); CARBON DIOXIDE 23 mmol/L (22-30); CHLORIDE 101 mmol/L (98-107); GLUCOSE 175 mg/dL (75-110); POTASSIUM 4.7 mmol/L (3.6-5.0); SODIUM 136.2 mmol/L (137-145)
[2018-11-15] MEDS: LEVOTHYROXINE SODIUM 0.1 MG TABLET PO SCH (06:38)
[2018-11-15 07:34] LABS: ABSOLUTE LYMPHOCYTES# (MANUAL) 0.5 10^3/uL (0.5-4.7); ABSOLUTE MONOCYTES # (MANUAL) 0.5 10^3/uL (0.1-1.4); ABSOLUTE NEUTROPHILS# (MANUAL) 11.3 10^3/uL (1.7-8.2); BASOPHILS % (MANUAL) 0 % (0-2); EOSINOPHILS % (MANUAL) 0 % (0-6); HYPOCHROMASIA SLIGHT; LYMPHOCYTES % (MANUAL) 4 % (13-45); MONOCYTES % (MANUAL) 4 % (3-13); POLYCHROMASIA SLIGHT; SEGMENTED NEUTROPHILS % (MAN) 92 % (42-78); TOTAL CELLS COUNTED 100
[2018-11-15 07:35] LABS: ANISOCYTOSIS 1+; PLATELET COMMENT ADEQUATE
[2018-11-15] MEDS: IPRATROPIUM/ALBUTEROL 0.5-2.5 MG/3 ML AMPUL NEB SCH ×3 (08:14→19:24)
[2018-11-15] MEDS: INSULIN LISPRO 100 UNIT/ML 3 ML VIAL SUBCUT SCH ×4 (08:38→23:03)
[2018-11-15] MEDS: METFORMIN HCL 500 MG TABLET PO SCH ×2 (08:38→17:15)
[2018-11-15] MEDS: ASPIRIN 81 MG TABLET, ENT COATED PO SCH (10:05)
[2018-11-15] MEDS: METHYLPREDNISOLONE INJ 40 MG/1 ML SDV IV SCH ×2 (10:05→23:03)
[2018-11-15] MEDS: DILTIAZEM HCL 240 MG CAPSULE.CR PO SCH (10:13)
[2018-11-15] MEDS: ENOXAPARIN SODIUM INJ 40 MG/0.4 ML DISP.SYRIN SUBCUT SCH (16:45)
--- NOTE | 2018-11-15 19:02 | PDOC PROGRESS REPORT ---
Subjective Progress Note for:: 11/15/18 Subjective:: The patient is an extremely pleasant but unfortunate 78-year-old female with a past medical history significant for hypertension, diabetes, obstructive sleep apnea not on CPAP and COPD. She uses 5 L of oxygen at baseline. She follows with Dr. Waters from pulmonology in [place]. The patient has a remote history of smoking. She presented to the emergency room with significant hypoxia with O2 sats of 62%. She did have a VQ scan to rule out pulmonary embolus. It was felt that she was having a COPD exacerbation and she was admitted for IV steroids, aggressive breathing treatment and was placed on BiPAP. Currently she has been weaned off of BiPAP but is still on 100% nonrebreather. When I saw the patient she states she feels quite well on the nonrebreather. She states that she really is not wheezing. She denies fever or shaking chills. No chest pain or heart palpitations. No nausea vomiting or diarrhea. No urinary complaints. At this point she is just quite hypoxic. Reason For Visit: ACUTE COPD EXACERBATION Physical Exam Vital Signs: Temp Pulse Resp BP Pulse Ox 97.4 F 85 18 100/73 93 11/15/18 17:00 11/15/18 17:00 11/15/18 13:35 11/15/18 17:00 11/15/18 17:00 Intake & Output 11/14/18 11/15/18 11/16/18 06:59 06:59 06:59 Intake Total 1194 699 696 Output Total 1200 550 Balance 1194 -501 146 Weight 67.2 kg 67.4 kg General appearance: PRESENT: no acute distress, well-developed, well-nourished, other - On a nonrebreather Head exam: PRESENT: atraumatic, normocephalic Mouth exam: PRESENT: moist, tongue midline Respiratory exam: PRESENT: decreased breath sounds, other - She has some very fi ne crackles in the lower bases bilaterally. She is not wheezing. Just significantly diminished. ABSENT: accessory muscle use, chest wall tenderness Cardiovascular exam: PRESENT: RRR, systolic murmur. ABSENT: diastolic murmur, rubs GI/Abdominal exam: PRESENT: normal bowel sounds, soft. ABSENT: distended, guarding, mass, organolmegaly, rebound, tenderness Rectal exam: PRESENT: deferred Extremities exam: PRESENT: full ROM. ABSENT: calf tenderness, clubbing, pedal edema Musculoskeletal exam: PRESENT: ambulatory Neurological exam: PRESENT: alert Psychiatric exam: PRESENT: appropriate affect, normal mood. ABSENT: homicidal ideation, suicidal ideation Skin exam: PRESENT: dry, intact, warm. ABSENT: cyanosis, rash Results Laboratory Results: 11/15/18 04:05 11/15/18 04:05 11/15/18 11/15/18 04:05 04:05 WBC 12.3 H RBC 4.54 Hgb 13.7 Hct 41.8 MCV 92 MCH 30.2 MCHC 32.8 RDW 17.6 H Plt Count 234 Seg Neutrophils % Not Reportable Lymphocytes % Not Reportable Monocytes % Not Reportable Eosinophils % Not Reportable Basophils % Not Reportable Absolute Neutrophils Not Reportable Absolute Lymphocytes Not Reportable Absolute Monocytes Not Reportable Absolute Eosinophils Not Reportable Absolute Basophils Not Reportable Sodium 136.2 L Potassium 4.7 Chloride 101 Carbon Dioxide 23 Anion Gap 12 BUN 31 H Creatinine 0.76 Est GFR ( Amer) > 60 Est GFR (Non-Af Amer) > 60 Glucose 175 H Calcium 9.3 Magnesium 2.6 H Impressions: Chest X-Ray 11/13/18 00:00 IMPRESSION: MILD INTERSTITIAL PROMINENCE WITH SMALL RIGHT PLEURAL EFFUSION. MAY BE DUE TO INTERSTITIAL EDEMA. NO LOBAR CONSOLIDATIONS. Lung Scan[facility] 11/13/18 12:50 IMPRESSION: NORMAL VENTILATION-PERFUSION LUNG SCAN. NEGATIVE FOR PULMONARY EMBOLI. Assessment & Plan - Diagnosis (1) Acute on chronic respiratory failure with hypoxemia Is this a current diagnosis for this admission?: Yes Plan: At this point the patient is no better after starting IV Solu-Medrol. She has been receiving aggressive breathing treatments as well. On exam the patient has a murmur worrisome for aortic stenosis. Also she seems to have some crackles in the lower bases. I am going to give her a one-time dose of IV Lasix and order a 2D echocardiogram. I cannot rule out that there is not an element of heart failure involved in her hypoxia. I looked at her chest x-ray and she may have some mild vascular congestion and small bilateral pleural effusions. She will continue her IV Solu-Medrol and aggressive breathing treatments. (2) COPD with exacerbation Is this a current diagnosis for this admission?: Yes Plan: Continue IV Solu-Medrol and aggressive breathing treatments. She is not wheezing. (3) Heart murmur Is this a current diagnosis for this admission?: Yes Plan: I do not know if this is new or not. I am beginning to worry that there could be some cardiac issues contributing to her hypoxia. I am going to get a 2D cardiac echo. This murmur is worrisome for aortic stenosis. She does follow with a commercial singer as an outpatient (4) SURESH (obstructive sleep apnea) Is this a current diagnosis for this admission?: Yes Plan: Continue CPAP at night (5) Diabetes Is this a current diagnosis for this admission?: Yes Plan: Blood sugar is uncontrolled due to steroids. She will continue sliding scale co verage however I will add back her Jardiance which can be relabeled for use here in the hospital. Also will place her back on her metformin. (6) Essential hypertension Is this a current diagnosis for this admission?: Yes Plan: Stable at this point. (7) Hyperkalemia Is this a current diagnosis for this admission?: Yes Plan: She received a dose of Kayexalate yesterday. Her level is normal today. (8) Full code status Is this a current diagnosis for this admission?: Yes - Time Time Spent with patient: 35 or more minutes - Inpatient Certification Medical Necessity: Other - Inpatient hospitalization remains necessary. This patient is not improving in spite of aggressive treatment. She needs an echocardiogram and continue parenteral steroids. I am also going to give her some IV Lasix today. Timing of disposition will be determined by her clinical course
[2018-11-15] MEDS ORDERED: FUROSEMIDE INJ/PF 40 MG/4 ML SDV IV ONE (20:00)
[2018-11-15] MEDS: ALPRAZOLAM 0.5 MG TABLET PO SCH (23:03)
[2018-11-15] MEDS: DILTIAZEM HCL 120 MG CAP.SR.24H PO SCH (23:03)
[2018-11-15] MEDS: ATORVASTATIN CALCIUM 10 MG TABLET PO SCH (23:09)
[2018-11-16 02:09] LABS: APPEARANCE,URINE CLEAR; BILIRUBIN,URINE NEGATIVE (NEGATIVE); COLOR,URINE STRAW; GLUCOSE, URINE >=500 mg/dL (NEGATIVE); KETONES,URINE NEGATIVE (NEGATIVE); LEUKOCYTE ESTERASE,URINE NEGATIVE (NEGATIVE); NITRITE,URINE NEGATIVE (NEGATIVE); PROTEIN,URINE NEGATIVE (NEGATIVE); URINE SPECIFIC GRAVITY 1.005; UROBILINOGEN,URINE NEGATIVE mg/dL (<2.0)
[2018-11-16 05:26] LABS: HEMOGLOBIN 14.2 g/dL (12.0-15.5); MEAN CORPUSCULAR HEMOGLOBIN 30.4 pg (27.0-33.4); MEAN CORPUSCULAR VOLUME 92 fl (80-97); PLATELET COUNT 236 10^3/uL (150-450); RED BLOOD COUNT 4.67 10^6/uL (3.72-5.28); WHITE BLOOD COUNT 10.9 10^3/uL (4.0-10.5)
[2018-11-16 05:42] LABS: ANION GAP 11 (5-19); BLOOD UREA NITROGEN 35 mg/dL (7-20); CARBON DIOXIDE 22 mmol/L (22-30); CHLORIDE 101 mmol/L (98-107); GLUCOSE 222 mg/dL (75-110); POTASSIUM 4.6 mmol/L (3.6-5.0); SODIUM 134.3 mmol/L (137-145)
[2018-11-16] MEDS: LEVOTHYROXINE SODIUM 0.1 MG TABLET PO SCH (05:46)
[2018-11-16 06:08] LABS: ABSOLUTE LYMPHOCYTES# (MANUAL) 0.1 10^3/uL (0.5-4.7); ABSOLUTE MONOCYTES # (MANUAL) 0.2 10^3/uL (0.1-1.4); ABSOLUTE NEUTROPHILS# (MANUAL) 10.6 10^3/uL (1.7-8.2); ANISOCYTOSIS 1+; BAND NEUTROPHILS % (MANUAL) 1 % (3-5); BASOPHILS % (MANUAL) 0 % (0-2); EOSINOPHILS % (MANUAL) 0 % (0-6); LYMPHOCYTES % (MANUAL) 1 % (13-45); MONOCYTES % (MANUAL) 2 % (3-13); PLATELET COMMENT ADEQUATE; POLYCHROMASIA SLIGHT; SEGMENTED NEUTROPHILS % (MAN) 96 % (42-78); TOTAL CELLS COUNTED 100
[2018-11-16] MEDS: IPRATROPIUM/ALBUTEROL 0.5-2.5 MG/3 ML AMPUL NEB SCH ×3 (07:47→19:49)
[2018-11-16] MEDS: INSULIN LISPRO 100 UNIT/ML 3 ML VIAL SUBCUT SCH ×4 (08:13→22:09)
[2018-11-16] MEDS: METFORMIN HCL 500 MG TABLET PO SCH ×2 (08:14→16:28)
[2018-11-16] MEDS: ASPIRIN 81 MG TABLET, ENT COATED PO SCH (09:43)
[2018-11-16] MEDS: DILTIAZEM HCL 240 MG CAPSULE.CR PO SCH (09:43)
[2018-11-16] MEDS: METHYLPREDNISOLONE INJ 40 MG/1 ML SDV IV SCH (09:43)
[2018-11-16] MEDS: POLYETHYLENE GLYCOL 3350 POWDER 17 GM/1 PACKET PO SCH (16:29)
[2018-11-16] MEDS: ENOXAPARIN SODIUM INJ 40 MG/0.4 ML DISP.SYRIN SUBCUT SCH (16:29)
--- NOTE | 2018-11-16 16:39 | PDOC PROGRESS REPORT ---
Subjective Progress Note for:: 11/16/18 Subjective:: No adverse events overnight. No new complaints. She is been stable on nonrebreather. She was able to get up and ambulate with a walker even while on the nonrebreather, and physical therapy felt that she would do fine and did not need more therapy, just a walker for balance. Reason For Visit: ACUTE COPD EXACERBATION Physical Exam Vital Signs: Temp Pulse Resp BP Pulse Ox 97.3 F 77 16 116/78 91 L 11/16/18 07:40 11/16/18 14:14 11/16/18 14:14 11/16/18 07:40 11/16/18 16:00 Intake & Output 11/15/18 11/16/18 11/17/18 06:59 06:59 06:59 Intake Total 699 696 Output Total 1200 550 Balance -501 146 Weight 67.4 kg 72.4 kg General appearance: PRESENT: no acute distress, well-developed, well-nourished, other - On a nonrebreather Respiratory exam: PRESENT: decreased breath sounds, other - She has some very fine crackles in the lower bases bilaterally. She is not wheezing. ABSENT: accessory muscle use, chest wall tenderness Cardiovascular exam: PRESENT: RRR, systolic murmur which is difficult to characterize. ABSENT: diastolic murmur, rubs GI/Abdominal exam: PRESENT: normal bowel sounds, soft. ABSENT: distended, guarding, mass, organolmegaly, rebound, tenderness Extremities exam: PRESENT: full ROM. ABSENT: calf tenderness, clubbing, pedal edema Musculoskeletal exam: PRESENT: ambulatory Neurological exam: PRESENT: alert, awake, oriented x3 Psychiatric exam: PRESENT: appropriate affect, normal mood. Skin exam: PRESENT: dry, intact, warm. ABSENT: cyanosis, rash Results Laboratory Results: 11/16/18 04:19 11/16/18 04:19 11/16/18 11/16/18 11/16/18 01:50 04: 04:19 WBC 10.9 H RBC 4.67 Hgb 14.2 Hct 43.0 MCV 92 MCH 30.4 MCHC 33.0 RDW 17.0 H Plt Count 236 Seg Neutrophils % Not Reportable Lymphocytes % Not Reportable Monocytes % Not Reportable Eosinophils % Not Reportable Basophils % Not Reportable Absolute Neutrophils Not Reportable Absolute Lymphocytes Not Reportable Absolute Monocytes Not Reportable Absolute Eosinophils Not Reportable Absolute Basophils Not Reportable Sodium 134.3 L Potassium 4.6 Chloride 101 Carbon Dioxide 22 Anion Gap 11 BUN 35 H Creatinine 0.86 Est GFR ( Amer) > 60 Est GFR (Non-Af Amer) > 60 Glucose 222 H Calcium 9.0 Magnesium 2.3 Urine Color STRAW Urine Appearance CLEAR Urine pH 6.0 Ur Specific [place] 1.005 Urine Protein NEGATIVE Urine Glucose (UA) >=500 H Urine Ketones NEGATIVE Urine Blood NEGATIVE Urine Nitrite NEGATIVE Ur Leukocyte Esterase NEGATIVE Urine WBC (Auto) 1 Urine RBC (Auto) 0 Impressions: Chest X-Ray 11/13/18 00:00 IMPRESSION: MILD INTERSTITIAL PROMINENCE WITH SMALL RIGHT PLEURAL EFFUSION. MAY BE DUE TO INTERSTITIAL EDEMA. NO LOBAR CONSOLIDATIONS. Lung Scan-[facility] 11/13/18 12:50 IMPRESSION: NORMAL VENTILATION-PERFUSION LUNG SCAN. NEGATIVE FOR PULMONARY EMBOLI. Assessment & Plan - Diagnosis (1) Acute on chronic respiratory failure with hypoxemia Is this a current diagnosis for this admission?: Yes Plan: Continues on nonrebreather, on 5 L of oxygen at home, we will continue to wean as tolerated (2) COPD exacerbation Is this a current diagnosis for this admission?: Yes Plan: She is not wheezing now, so I am going to stop the Solu-Medrol. I am going to put her on some prednisone for just a few days. She has an echocardiogram pending, because it is thought that perhaps her heart could be playing some role her hypoxemia. - Time Time Spent with patient: 25-34 minutes
[2018-11-16] MEDS: DOCUSATE SODIUM 100 MG CAPSULE PO SCH (17:51)
[2018-11-16] MEDS: DILTIAZEM HCL 120 MG CAP.SR.24H PO SCH (22:10)
[2018-11-16] MEDS: ATORVASTATIN CALCIUM 10 MG TABLET PO SCH (22:10)
[2018-11-16] MEDS: ALPRAZOLAM 0.5 MG TABLET PO SCH (22:10)
[2018-11-17] MEDS: LEVOTHYROXINE SODIUM 0.1 MG TABLET PO SCH (05:56)
[2018-11-17] MEDS: IPRATROPIUM/ALBUTEROL 0.5-2.5 MG/3 ML AMPUL NEB SCH ×3 (08:25→20:23)
[2018-11-17] MEDS: METFORMIN HCL 500 MG TABLET PO SCH ×2 (08:57→19:19)
[2018-11-17] MEDS: INSULIN LISPRO 100 UNIT/ML 3 ML VIAL SUBCUT SCH ×3 (08:58→21:20)
[2018-11-17] MEDS: DILTIAZEM HCL 240 MG CAPSULE.CR PO SCH (09:55)
[2018-11-17] MEDS: PREDNISONE 20 MG TABLET PO SCH (09:55)
[2018-11-17] MEDS: DOCUSATE SODIUM 100 MG CAPSULE PO SCH ×3 (09:55→19:24)
[2018-11-17] MEDS: ASPIRIN 81 MG TABLET, ENT COATED PO SCH (09:55)
[2018-11-17] MEDS: POLYETHYLENE GLYCOL 3350 POWDER 17 GM/1 PACKET PO SCH (09:55)
--- NOTE | 2018-11-17 17:21 | PDOC PROGRESS REPORT ---
Subjective Progress Note for:: 11/17/18 Subjective:: No adverse events overnight. Her only real complaint is that she still has the mask on. We took her off the nonrebreather and put her on a nasal cannula and her pulse oximetry stayed in the low 90s while she ate. Reason For Visit: ACUTE COPD EXACERBATION Physical Exam Vital Signs: Temp Pulse Resp BP Pulse Ox 97.5 F 82 16 139/62 H 96 11/17/18 10:42 11/17/18 13:32 11/17/18 13:32 11/17/18 10:42 11/17/18 13:32 Intake & Output 11/16/18 11/17/18 11/18/18 06:59 06:59 06:59 Intake Total 696 654 Output Total 550 0 Balance 146 654 Weight 72.4 kg 71.8 kg General appearance: PRESENT: no acute distress, well-developed, well-nourished Respiratory exam: PRESENT: decreased breath sounds, other - She has some very fine crackles in the lower bases bilaterally. She is not wheezing. ABSENT: accessory muscle use, chest wall tenderness Cardiovascular exam: PRESENT: RRR, systolic murmur which is difficult to characterize. ABSENT: diastolic murmur, rubs GI/Abdominal exam: PRESENT: normal bowel sounds, soft. ABSENT: distended, guar ding, mass, organolmegaly, rebound, tenderness Extremities exam: PRESENT: full ROM. ABSENT: calf tenderness, clubbing, pedal edema Musculoskeletal exam: PRESENT: ambulatory Neurological exam: PRESENT: alert, awake, oriented x3 Psychiatric exam: PRESENT: appropriate affect, normal mood. Skin exam: PRESENT: dry, intact, warm. ABSENT: cyanosis, rash Results Laboratory Results: 11/16/18 04:19 11/16/18 04:19 Impressions: Chest X-Ray 11/13/18 00:00 IMPRESSION: MILD INTERSTITIAL PROMINENCE WITH SMALL RIGHT PLEURAL EFFUSION. MAY BE DUE TO INTERSTITIAL EDEMA. NO LOBAR CONSOLIDATIONS. Lung Scan-[facility] 11/13/18 12:50 IMPRESSION: NORMAL VENTILATION-PERFUSION LUNG SCAN. NEGATIVE FOR PULMONARY EMBOLI. Assessment & Plan - Diagnosis (1) Acute on chronic respiratory failure with hypoxemia Is this a current diagnosis for this admission?: Yes Plan: She did okay once we switch her over to a nasal cannula. We are going to monitor her overnight on the nasal cannula, and if she does well on that we might be able to send her home in the morning. (2) COPD exacerbation Is this a current diagnosis for this admission?: Yes Plan: Will de-escalate her steroids to prednisone. - Time Time Spent with patient: 25-34 minutes
[2018-11-17] MEDS: ENOXAPARIN SODIUM INJ 40 MG/0.4 ML DISP.SYRIN SUBCUT SCH (19:21)
[2018-11-17] MEDS: ALPRAZOLAM 0.5 MG TABLET PO SCH (21:20)
[2018-11-17] MEDS: DILTIAZEM HCL 120 MG CAP.SR.24H PO SCH (21:20)
[2018-11-17] MEDS: ATORVASTATIN CALCIUM 10 MG TABLET PO SCH (21:21)
[2018-11-18] MEDS: LEVOTHYROXINE SODIUM 0.1 MG TABLET PO SCH (06:24)
[2018-11-18] MEDS: IPRATROPIUM/ALBUTEROL 0.5-2.5 MG/3 ML AMPUL NEB SCH ×2 (08:19→13:54)
[2018-11-18] MEDS: METFORMIN HCL 500 MG TABLET PO SCH (08:47)
[2018-11-18] MEDS: INSULIN LISPRO 100 UNIT/ML 3 ML VIAL SUBCUT SCH ×2 (08:48→12:43)
[2018-11-18] MEDS: DILTIAZEM HCL 240 MG CAPSULE.CR PO SCH (10:28)
[2018-11-18] MEDS: PREDNISONE 20 MG TABLET PO SCH (10:28)
[2018-11-18] MEDS: ASPIRIN 81 MG TABLET, ENT COATED PO SCH (10:28)
[2018-11-18] MEDS: DOCUSATE SODIUM 100 MG CAPSULE PO SCH (10:30)
[2018-11-18] MEDS: POLYETHYLENE GLYCOL 3350 POWDER 17 GM/1 PACKET PO SCH (10:31)
[2018-11-18 12:41] VITALS: BP 108/58
--- NOTE | 2018-11-18 16:01 | PDOC DISCHARGE SUMMARY ---
General - Admit/Disc Date/PCP Admission Date/Primary Care Provider: 11/12/18 15:57 BERHANE DENTON MD Discharge Date: 11/18/18 - Discharge Diagnosis (1) Acute on chronic respiratory failure with hypoxemia Is this a current diagnosis for this admission?: Yes Summary: She had a temporary need for higher level of oxygen that she was getting at home. We were able to transition her back to a lower level of oxygen that she was on at home. She said she was on 5 at home, we were able to send her back on 3.5 L. (2) COPD exacerbation Is this a current diagnosis for this admission?: Yes Summary: She responded to steroids, antibiotics, and bronchodilators. - Additional Information Discharge Diet: Cardiac, Diabetic Discharge Activity: Activity As Tolerated, Balance Activity w/Rest, Energy Conservation Prescriptions: Albuterol Sulfate [Ventolin 0.083% Neb 2.5 mg/3 mL Ampul] 2.5 mg NEB Q4HP PRN #120 vial.neb PRN Reason: Prednisone [Deltasone 20 mg Tablet] 40 mg PO DAILY #10 tablet Home Medications: Empagliflozin [Jardiance] 25 mg PO DAILY 05/20/17 Diltiazem HCl [Diltiazem 24Hr Cd] 120 mg PO QHS 05/21/17 Alprazolam [Xanax 0.5 mg Tablet] 0.5 mg PO QHS 11/12/18 Aspirin [Ecotrin 81 mg EC Tablet] 81 mg PO DAILY 11/12/18 Diltiazem HCl [Diltiazem 24Hr ER] 240 mg PO DAILY 11/12/18 Metformin HCl [Metformin ER Gastric] 1,000 mg PO BID 11/12/18 Multivit-Min/Iron/Folic/Lutein [Centrum Silver Women Tablet] 1 each PO DAILY 11/12/18 Rosuvastatin Calcium [Crestor 5 mg Tablet] 5 mg PO QHS 11/12/18 Levothyroxine Sodium [Synthroid 0.1 mg Tablet] 0.1 mg PO DAILY 11/13/18 Umeclidinium Inez [Incruse Ellipta] 1 puff IH DAILY 11/13/18 Albuterol Sulfate [Ventolin 0.083% Neb 2.5 mg/3 mL Ampul] 2.5 mg NEB Q4HP PRN #120 vial.neb 11/18/18 Lisinopril 20 mg PO DAILY #0 11/18/18 Prednisone [Deltasone 20 mg Tablet] 40 mg PO DAILY #10 tablet 11/18/18 History of Present Illness History of Present Illness: MARTA ANDERS is a 78 year old female with a history of HTN, DM2, SURESH not on CPAP, and COPD who presents with 2 days of worsening SOB. Patient states that she has become progressively SOB over the last few days. She denies fevers or chills, recently illnesses, or sick contacts. She has noticed worsening sinus issues, sneezing, nasal drainage, and occasional cough lately. She thinks this might be allergy/sinus related. Patient has a history of smoking however does not currently smoke. She has a formal diagnosis of COPD and is currently on 5L O2 all the time. She is followed by a construction equipment mechanic in [place] who manages her O2. She states that she does not use an inhaler at home "because it makes her chest tight". She denies using systemic steroids at this time. Patient's last hospitalization was in Jun due to COPD exacerbation. She denies chest pain, abdominal pain, NV. Her appetite has been good. At time of EMS evaluation, patient's O2 sat was 62%. It is unclear if she was wearing her home O2 at that time. In ED, ABG showed pO2 of 64 but there was no CO2 retention. Patient also has a history of SURESH however does not use CPAP becau se the mask "hurts my face". She received IV steroids, breathing treatment, and was placed on BiPAP. At time of my examination, she was feeling signficantly better. Will admit to hospitalist service for further evaluation. Hospital Course Hospital Course: She was on BiPAP for a couple of days and then was put on a nonrebreather. She ambulated with physical therapy and actually did very well for them while on the nonrebreather. One day we decided just to put her on a nasal cannula and see what happened to her oxygen saturations, we were able to get her down to 3.5 L and keep her oxygen saturations in the low 90s. She will complete a course of steroids at home. Her labs and examinations are reassuring and she was discharged in good condition. Physical Exam Vital Signs: Temp Pulse Resp BP Pulse Ox 97.6 F 82 16 108/58 L 93 11/18/18 12:49 11/18/18 13:54 11/18/18 13:54 11/18/18 12:49 11/18/18 13:54 Intake & Output 11/17/18 11/18/18 11/19/18 06:59 06:59 06:59 Intake Total 654 250 118 Output Total 0 1 Balance 654 249 118 Weight 71.8 kg 72.8 kg General appearance: PRESENT: no acute distress, well-developed, well-nourished Respiratory exam: PRESENT: decreased breath sounds, other - She has some very fine crackles in the lower bases bilaterally. She is not wheezing. ABSENT: accessory muscle use, chest wall tenderness Cardiovascular exam: PRESENT: RRR, systolic murmur which is difficult to characterize. ABSENT: diastolic murmur, rubs GI/Abdominal exam: PRESENT: normal bowel sounds, soft. ABSENT: distended, guarding, mass, organolmegaly, rebound, tenderness Extremities exam: PRESENT: full ROM. ABSENT: calf tenderness, clubbing, pedal edema Musculoskeletal exam: PRESENT: ambulatory Neurological exam: PRESENT: alert, awake, oriented x3 Psychiatric exam: PRESENT: appropriate affect, normal mood. Skin exam: PRESENT: dry, intact, warm. ABSENT: cyanosis, rash Results Laboratory Results: 11/16/18 04:19 11/16/18 04:19 Impressions: Chest X-Ray 11/13/18 00:00 IMPRESSION: MILD INTERSTITIAL PROMINENCE WITH SMALL RIGHT PLEURAL EFFUSION. MAY BE DUE TO INTERSTITIAL EDEMA. NO LOBAR CONSOLIDATIONS. Lung Scan-[facility] 11/13/18 12:50 IMPRESSION: NORMAL VENTILATION-PERFUSION LUNG SCAN. NEGATIVE FOR PULMONARY E MBOLI. Qualifiers - * PATIENT BEING DISCHARGED WITH ANY OF THE FOLLOWING DIAGNOSIS: No
== END 2018-11-18 14:43 | disposition home or self-care (01) | DRG 189 ==
LOC: ER 13:13 → EH 15:57 → 3N 18:49
PROVIDERS: ADMIT Internal Medicine; ATTEND Internal Medicine
PROC: 5A09557 Assistance with Respiratory Ventilation, Greater than 96 Consecutive Hours, Continuous Positive Airway Pressure (ICD-10-PCS; principal; 2018-11-12)
PROC: 3E0F73Z Introduction of Anti-inflammatory into Respiratory Tract, Via Natural or Artificial Opening (ICD-10-PCS; 2018-11-12)
DX: J96.21 Acute and chronic respiratory failure with hypoxia (principal); J44.1 Chronic obstructive pulmonary disease with (acute) exacerbation; I10 Essential (primary) hypertension; E11.9 Type 2 diabetes mellitus without complications; G47.33 Obstructive sleep apnea (adult) (pediatric); E03.9 Hypothyroidism, unspecified; M19.90 Unspecified osteoarthritis, unspecified site; R73.9 Hyperglycemia, unspecified; T38.0X5A Adverse effect of glucocorticoids and synthetic analogues, initial encounter; E87.5 Hyperkalemia; R01.1 Cardiac murmur, unspecified; Z99.81 Dependence on supplemental oxygen; Z79.899 Other long term (current) drug therapy; Z79.82 Long term (current) use of aspirin; Z79.84 Long term (current) use of oral hypoglycemic drugs; Z79.890 Hormone replacement therapy; Z87.891 Personal history of nicotine dependence; Z90.710 Acquired absence of both cervix and uterus; Z91.19 Patient's noncompliance with other medical treatment and regimen; Z83.6 Family history of other diseases of the respiratory system
CPT/HCPCS: 36415; 71045; 71046; 78582; 80048; 80053; 81001; 82803; 82962; 83605; 83735; 85025; 93005; 93010; 94640; 94660; 96365; 96366; 96375; 99291; A9540; A9567; J1650; J1815; J1940; J2405; J2920; J2930; J3475; J3490; J7512; J7620

== ENCOUNTER 2019-04-01 14:16 | Emergency (ER) | payer MEDICARE, OTHER ==
--- NOTE | 2019-04-01 15:01 | ER Document Report ---
ED General - General Chief Complaint: Cardiac Arrest Stated Complaint: UNRESPONSIVE Time Seen by Provider: 04/01/19 14:57 Primary Care Provider: SOURAV PARKER MD [Primary Care Provider] - Follow up as needed Notes: Patient is a 78-year-old female that presents to the emergency department for chief complaint of shortness of breath and chest pain. History provided by EMS, patient apparently was having chest pain, was found to be short of breath, was getting albuterol treatment when fire department arrived, they got the patient under the stretcher she was noted to be bradycardic, having increased respiratory distress, she was given atropine, was not improving, and then they lost pulses, and chest compressions were initiated, she is given a total of 4 rounds of epinephrine without improvement, her rhythm check she was asystole, she was intubated in the field, with a 7.0 ET tube. She arrived to the emergency department, with active chest compressions, no other history obtainable at this time. Limited past medical history obtained from EMS Past Medical History: Right-sided heart failure Past Surgical History: Cardiac medication pump REVIEW OF SYSTEMS: Review of systems unobtainable at this time because the patient is in cardiac arrest PHYSICAL EXAMINATION: Vital signs reviewed, nursing noted reviewed. GENERAL: GCS 3, unresponsive HEAD: Atraumatic, normocephalic. EYES: Pupils fixed, mid position, nonresponsive to light ENT: nares patent, ET tube in place NECK: No step-off noted LUNGS: Coarse lung sounds, with assistive breaths HEART: No pulse palpated in between compressions, palpable pulses with chest compressions. ABDOMEN: Soft, mildly distended, there is a medication pump with insertion at the right lower abdomen. EXTREMITIES: Trace bilateral lower extremity edema, no gross deformities noted to the limbs. NEUROLOGICAL: GCS 3, pupils fixed, midposition. PSYCH: GCS 3. SKIN: Cool, dry, no rashes noted. - Related Data Allergies/Adverse Reactions: No Known Allergies Allergy (Verified 05/20/17 16:33) Past Medical History - Social History Smoking Status: Unknown if Ever Smoked Family History: COPD - Past Medical History Cardiac Medical History: Reports: Hx Hypertension Denies: Hx Coronary Artery Disease, Hx Heart Attack Pulmonary Medical History: Reports: Hx COPD - slight case Denies: Hx Asthma, Hx Bronchitis, Hx Pneumonia Neurological Medical History: Denies: Hx Cerebrovascular Accident, Hx Seizures Endocrine Medical History: Reports: Hx Diabetes Mellitus Type 2, Hx Hypothyroidism Renal/ Medical History: Denies: Hx Peritoneal Dialysis Musculoskeletal Medical History: Reports Hx Arthritis Past Surgical History: Reports: Hx Abdominal Surgery - hernia, Hx Hysterectomy, Hx Thyroid Surgery - Immunizations Hx Diphtheria, Pertussis, Tetanus Vaccination: No Hx Pneumococcal Vaccination: 09/05/17 Course - Re-evaluation Re-evalutation: Patient seen and examined upon immediate arrival of EMS, was undergoing active CPR chest compressions, had received 4 rounds of epinephrine already, upon initial rhythm check, patient was noted to be in asystole, continued chest compressions, and 3 additional rounds of epinephrine, and was given sodium bicarbonate, without return of spontaneous circulation, cardiac ultrasound in between compressions, and during rhythm checks, demonstrated no cardiac activity . After multiple rounds of CPR, additional epinephrine as noted above, patient was not obtaining ROSC, and at that point one further examination, with pupils fixed, mid position, and no further response, and ultrasound demonstrated no cardiac activity, the patient's time of was called at 1427, family was notified, and the family waiting room, and consoled. Critical Care Note - Critical Care Note Total time excluding time spent on procedures (mins): 20 Comments: Critical care time 20 minutes exclusive from separate billable procedures for a patient requiring complex medical decision making, in a patient that presents with cardiac arrest, requiring resuscitative efforts. Discharge - Discharge Clinical Impression: Cardiac arrest Condition: Critical Disposition: Referrals: SOURAV PARKER MD [Primary Care Provider] - Follow up as needed
[2019-04-01] MEDS ORDERED: EPINEPHRINE INJ 1 MG/10 ML DISP.SYRIN ONE (16:28)
[2019-04-01] MEDS ORDERED: SODIUM BICARBONATE 8.4% INJ 50 MEQ/50 ML DISP.SYRIN ONE (16:28)
== END 2019-04-01 17:25 | disposition expired ==
LOC: ER 14:16
DX: I46.9 Cardiac arrest, cause unspecified (principal); R07.9 Chest pain, unspecified; R06.02 Shortness of breath; I10 Essential (primary) hypertension; Z90.710 Acquired absence of both cervix and uterus
CPT/HCPCS: 99285; 92950; J0171; J3490